=== PATIENT | female | born 1985 ===

== ENCOUNTER 2021-02-22 10:11 | Emergency (ER) | payer OTHER, SELFPAY ==
[2021-02-22 11:44] VITALS: BP 133/71; PULSE 82; RESP 16; TEMP 36.6; O2SAT 98; BMI 32.5
[2021-02-22 12:58] LABS: COVID-19 Test Negative (Negative); IDNOW Serial# 9DD0AD1C
--- NOTE | 2021-02-22 13:28 | ED.DENTAL ---
HPI - Dental/Oral General Chief complaint: Dental/Oral Stated complaint: dry gums, itchy face Time Seen by Provider: 02/22/21 12:15 Source: patient Mode of arrival: ambulatory History of Present Illness HPI Narrative: 36-year-old female with a past medical history of cardiomyopathy presenting to the ED complaining of dry/itchy gums, swollen lips s/p eating pizza 5 days ago. Admits symptoms are resolved at present, improved after taking Zyrtec. Believes toothpaste may also be culprit. Denies any rash, oral swelling, drooling, difficulty swallowing, wheezing, shortness of breath, cough. States 1 of her daughters was having similar reaction however her symptoms improved as well. Denies recent travel. Related Data Allergies Allergy/AdvReac Type Severity Reaction Status Date / Time penicillin G [PENICILLIN G] Allergy Unknown SWELLING Unverified 03/04/20 15:58 Review of Systems Review of Systems: Constitutional: No Fever, No Chills ENT/Mouth: No Ear Pain, No Nasal Congestion, No Hoarseness, No sore throat, No Swallowing Difficulty, + gum irritation/dry gums, swollen lips (resolved), itchy mouth (resolved) Cardiovascular: No Chest Pain, No SOB Respiratory: No Cough, No Sputum, No Wheezing Gastrointestinal: No Nausea, No Vomiting, No Abdominal pain Musculoskeletal: No joint pain, No Myalgias, No Joint Swelling Skin: No Skin Lesions, No rash Neuro: No Weakness, No Numbness Yes all other systems are reviewed and are negative PMFSH Past Medical History Attestation statement: The following information was validated with the patient. Medical History (Updated 02/22/21 @ 13:29 by AVERY Garcia) cardiomyopathy Social History Social History Advance Directives: No Advance Directives Information Provided: No Patient : No Physical Exam Vital Signs: Vital Signs: Last Vital Signs Temp 97.8 F 02/22/21 11:44 Pulse 82 02/22/21 11:44 Resp 16 02/22/21 11:44 BP 133/71 02/22/21 11:44 Pulse Ox 98 02/22/21 11:44 Body Mass Index 32.5 Const: General: cooperative, healthy appearing and no acute distress Orientation/consciousness: patient oriented x3 Limitations: no limitations HENMT: Head: Yes normal to inspection Ears: hearing grossly normal bilaterally General nose exam: Normal external nose present and Normal nares present Face and sinus: Yes normal facial exam Mouth: Normal oral and palatal mucosa present, lip normal, tongue normal, oropharynx normal, moist mucous membranes, no drooling and no muffled voice Throat: Yes posterior oropharynx normal, Yes tonsils normal, Yes uvula midline, No peritonsillar mass, No uvula laterally displaced and No uvular edema Eyes: General: appearance normal, both eyes and all related structures EOM: EOMs intact bilaterally Neck: Neck: Yes normal visual inspection, Yes no lymphadenopathy, Yes no meningeal signs, Yes trachea midline, Yes supple and No anterior neck swelling Resp: Effort & Inspection: normal respiratory effort, not labored, no stridor and not tachypneic Auscultation: clear to auscultation bilaterally Cardio: Rate: regular rate Heart sounds: S1 normal heart sound present and S2 normal heart sound present Skin: Rashes: no rashes Wounds: no wounds Neuro: General: patient oriented x3 and no meningeal signs Gait exam (Neuro): Normal gait present Extrem: General: Yes normal to inspection MDM - Dental/Oral MDM Narrative Medical decision making narrative: 36-year-old female with a past medical history of cardiomyopathy presenting to the ED complaining of dry/itchy gums, swollen lips s/p eating pizza 5 days ago. On exam VSS, NAD, no appreciable swelling/rash or lesions, no respiratory distress. Likely allergic reaction. Patient requesting COVID-19 testing. Plan: COVID-19 testing. Because with patient she should take Zyrtec and Benadryl at home if symptoms recur, and record diary of ingested substances if she develops similar reaction, into follow-up for allergy testing Lab Data Labs: Lab Results 02/22/21 Range/Units 12:24 COVID-19 (GABBY) Negative (Negative) COVID-19 Clin Com See Note Discharge Plan Discharge Clinical Impression: Allergic reaction Patient Disposition: Home, Self-Care Instructions: General Allergic Reaction (ED), Allergy Testing (ED) Additional Instructions: Take Zyrtec and Benadryl at home as needed for allergic reaction symptoms You tested negative for COVID-19 Please follow-up with her doctor If he develops shortness of breath, oral swelling, inability to swallow, lip/mouth swelling please return to the ED Referrals: Romain Gold MD [Primary Care Provider] - 2 days Interventions: ED Discharge Assessment Last Done: 02/22/21 13:40 Discharge Date/Time: 02/22/21 13:41
== END 2021-02-22 13:41 | disposition home or self-care (01) ==
PROVIDERS: Physician Assistant; Emergency Provider Emergency Medicine; PCP Internal Medicine
DX: T78.40XA Allergy, unspecified, initial encounter (principal); Z20.822 Contact with and (suspected) exposure to COVID-19
CPT/HCPCS: 36415; 87635; 99283

== ENCOUNTER 2021-06-16 14:02 | Outpatient (REF) | payer OTHER, SELFPAY ==
[2021-06-16 15:30] LABS: Binax Internal Control QC Valid; Binax Lot number: 9864; Binax Now Covid-19 Ag Positive (Negative)
== END 2021-06-16 14:03 | disposition home or self-care (01) ==
LOC: HO.LAB 14:02
PROVIDERS: Visit Provider Internal Medicine
DX: Z20.822 Contact with and (suspected) exposure to COVID-19 (principal)
CPT/HCPCS: 36415; C9803

== ENCOUNTER 2022-03-19 14:11 | Emergency (ER) | payer OTHER, SELFPAY ==
--- NOTE | ~2022-03-19 | XR_ITS ---
EXAMINATION: XR THORACIC SPINE CLINICAL INFORMATION: Fall, injury COMPARISON: None TECHNIQUE: 3 views of the thoracic spine were obtained. FINDINGS: There is no fracture or bone destruction seen and the vertebral alignment is normal. There is no disc space narrowing. There is no abnormality of the paraspinal soft tissues. XR/XR thoracic spine 3V IMPRESSION: Unremarkable examination.
[2022-03-19 14:13] VITALS: BP 147/75; PULSE 65; RESP 18; TEMP 36.4; O2SAT 97; BMI 34.3
--- OUTSIDE RECORDS SUMMARY | 2022-03-19 14:37 | XMS_ITS | Continuity of Care Document ---
:1985 [facility] [employer] [facility] p Address [address] [place] [address], [address] [place] [address]- Care Team Providers Name Role Phone Asif HERNÁNDEZ MD, Romain Armas Primary Care Physician [id number] Date(s[facility]/13/[facility] - [facility]20/19 [facility] [employer] [address] [place] [address], [address] [place] [address]- [facility] Attending Physician: Jack ZUÑIGA, Noah Regan Referring Physician: Not on Staff, Referring MD Allergies, Adverse Reactions, Alerts Substance Reaction Severity Status penicillins Active Immunizations Given and Recorded Vaccine Date Status Refusal Reason tetanus/diphtheria/pertussis, acel(Tdap) 06/23/19 Given Medications levothyroxine 0.125 mg oral tablet 0 Refills, Maintenance, 12/22/16 11:37:27 Start Date: 12/22/16 Status: OrderedMultivitamin Tablet 0 Refills, Maintenance, 10/27/19 14:26:00 EDT Start Date: 10/27/19 Status: Ordered Problem List Condition Effective Dates Status Health Status Informant Anxiety(Confirmed) Active History of DEDE 2 in 2012, s/p Active cryoablation, subsequent normal paps. 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
--- OUTSIDE RECORDS SUMMARY | 2022-03-19 14:37 | XMS_ITS | Continuity of Care Document ---
:1985 Author Organization [facility] Address [address] [place] [address]- Care Team Providers Name Role Phone Asif HERNÁNDEZ MD, Romain Armas Primary Care Physician Encounter [facility] [place] Date(s): 06/24/19 - 06/24/[address] [address]- [facility] Attending Physician: Lydia Mariano MD Allergies, Adverse Reactions, Alerts Substance Reaction Severity Status penicillins Active Immunizations Given and Recorded Vaccine Date Status Refusal Reason tetanus/diphtheria/pertussis, acel(Tdap) 06/23/19 Given Medications levothyroxine 0.125 mg oral tablet 0 Refills, Maintenance, 12/22/16 11:37:27 Start Date: 12/22/16 Status: OrderedPrenate Mini with DHA oral capsule 1 capsule, By Mouth, Daily, # 30 capsule, 11 Refills, Maintenance, 04/08/19 19:48:54 EDT, 1 capsule By Mouth Daily Start Date: 04/08/19 Status: Ordered Problem List Condition Effective Dates Status Health Status Informant Anxiety(Confirmed) Active DEDE 2 2012, s/p cryoablation, Active subsequent normal paps(Confirmed) Endometriosis(Confirmed) Active 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
--- OUTSIDE RECORDS SUMMARY | 2022-03-19 14:37 | XMS_ITS | Continuity of Care Document ---
:1985 Author [facility] p Address [address] [place] [address], [address] [place] [address]- Care Team Providers Name Role Phone Asif HERNÁNDEZ MD, Romain Armas Primary Care Physician [place] [facility] [place]/20/19 - 12/28/19 [facility] Melva [employer] [facility] [address] [place] [address], [address] [place] [address]- [facility] Attending Physician: Anthony ZUÑIGA, Noah Gregory Referring Physician: Noah Santiago MD Allergies, Adverse Reactions, Alerts Substance Reaction [...] Procedure Date Related Diagnosis Body Site Status Tubal ligation 09/08/19 Completed Social History Social History Type Response Smoking Status Never (less than 100 in life time); Tobacco user in household: No entered on: 10/27/19 Sex
--- OUTSIDE RECORDS SUMMARY | 2022-03-19 14:37 | XMS_ITS | Continuity of Care Document ---
:1985 Author Organization [facility] Address [address] [place] [address], [address] [place] [address]- Care Team Providers Name Role Phone Asif HERNÁNDEZ MD, Romain Armas Primary Care Physician Encounter [facility] [place] Date(s): 09/01/19 - 09/08/19 [facility] Melva [facility] [address] [place] [address], [address] [place] [address]- Attending Physician: Jak ZUÑIGA, Tiff Betancourt Referring Physician: Pamela Graff MD Allergies, Adverse Reactions, Alerts Substance Reaction Severity Status penicillins Active Immunizations Given and Recorded Vaccine Date Status Refusal Reason tetanus/diphtheria/pertussis, acel(Tdap) 06/23/19 Given Medications ferrous fumarate 325 mg oral tablet 1 tablet = 325 mg, By Mouth, Daily, # 90 tablet, 0 Refills, Maintenance, 06/26/19 13:08:00 EST, Tablet, [facility] [address], 160, cm, 06/23/19 16:04:00 EST, Height Start Date: 06/26/19 Status: Orderedlevothyroxine 0.125 mg oral tablet 0 Refills, Maintenance, 12/22/16 11:37:27 Start Date: 12/22/16 Status: Orderednystatin topical 600814 u/gm powder 1 application, Topically, 2 times a day, # 30 Gm, 1 Refills, Acute 09/26/19 10:19:00 EDT, 08/18/19 10:19:00 EST, Powder, [id number], 1 application Topically 2 times a day, 160, cm, 08/18/19 9:57:00 EST, Height Start Date: 08/18/19 Stop Date: 09/26/19 Status: OrderedPrenate Mini with DHA oral capsule 1 capsule, By Mouth, Daily, # 30 capsule, 11 Refills, Maintenance, 04/08/19 19:48:54 EDT, 1 capsule By Mouth Daily Start Date: 04/08/19 Status: OrderedvalACYclovir 500 mg oral tablet 500 mg, 1, tablet, By Mouth, Every 12 hours, # 60 tablet, Refills 1, Tot. 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 History of delivery(Confirmed) Active Hypothyroidism(Confirmed) Active Multigravida of advanced maternal Active age(Confirmed) Obesity(Confirmed) Active Seasonal allergies(Confirmed) Active Request for sterilization(Confirmed) Active Uterine scar from previous Active delivery, antepartum(Confirmed) Vital Signs Most recent to oldest [Reference Range]: 1 Height 160 cm (09/01/19 2:12 PM) Weight 93.2 kg (09/01/19 2:12 PM) Body Mass Index [18.5-24.99] 36.41 *>HHI* (09/01/19 2:12 PM) Blood Pressure [90-138/55-84 mm Hg] 114/70 mm Hg (09/01/19 2:12 PM) Blood pressure sites Arm, right (09/01/19 2:12 PM) Weight Obtained Via Standing scale (09/01/19 2:12 PM) Social History Social History Type Response Smoking Status Never (less than 100 in life time); Tobacco user in household: No entered on: 04/08/19 Sex
--- OUTSIDE RECORDS SUMMARY | 2022-03-19 14:37 | XMS_ITS | Continuity of Care Document ---
:1985 Author Organization [facility] p Address [address] [place] [address], [address] [place] [address]- Care Team Providers Name Role Phone Asif HERNÁNDEZ MD, Romain Armas Primary Care Physician En[place] [facility] [place] Date(s): 06/23/19 - 06/30/19 [facility] [facility] [address] [place] [address], [address] [place] [address]- Attending Physician: Lydia Mariano MD Allergies, Adverse Reactions, Alerts Substance Reaction Severity Status penicillins Active Immunizations Given and Recorded Vaccine Date Status Refusal Reason tetanus/diphtheria/pertussis, acel(Tdap) 06/23/19 Given Medications ferrous fumarate 325 mg oral tablet 1 tablet = 325 mg, By Mouth, Daily, # 90 tablet, 0 Refills, Maintenance, 06/26/19 13:08:00 EST, Tablet, [facility] [address], 160, cm, 06/23/19 16:04:00 EST, Height [...] oldest [Reference Range]: 1 Height 160 cm (06/23/19 4:04 PM) Weight 89.1 kg (06/23/19 4:04 PM) Body Mass Index [18.5-24.99] 34.8 *>HHI* (06/23/19 4:04 PM) Blood Pressure [90-138/55-84 mm Hg] 108/59 mm Hg (06/23/19 4:04 PM) Blood pressure sites Arm, right (06/23/19 4:04 PM) Weight Obtained Via Standing scale (06/23/19 4:04 PM) Social History Social History Type Response Smoking Status Never (less than 100 in life time); Tobacco user in household: No entered on: 04/08/19 Sex
--- OUTSIDE RECORDS SUMMARY | 2022-03-19 14:37 | XMS_ITS | Continuity of Care Document ---
:1985 Author Organization [facility] Address [address] [place] [address]- Care Team Providers Name Role Phone Asif HERNÁNDEZ MD, Romain Armas Primary Care Physician En[facility] [place] Date(s): 07/29/19 - 08/08/[address] [address]- [facility] Attending Physician: Lillie Goldberg Admitting Physician: AdmLillie mccollum Referring Physician: AdmtrLillie Allergies, Adverse Reactions, Alerts Substance Reaction Severity [...]
--- OUTSIDE RECORDS SUMMARY | 2022-03-19 14:37 | XMS_ITS | Continuity of Care Document ---
:1985 Author Organization [facility] Address [address] [place] [address], [address] [place] [address]- Care Team Providers Name Role Phone Asif HERNÁNDEZ MD, Romain Armas Primary Care Physician Encounter [facility] Date(s): 07/21/19 - 07/31/19 [facility] [email or web address] [address], [address] [place] [address]- Attending Physician: Lillie Goldberg Admitting Physician: Lillie Goldberg Referring Physician: Lillie Goldberg Allergies, Adverse Reactions, Alerts Substance Reaction Severity [...]
--- OUTSIDE RECORDS SUMMARY | 2022-03-19 14:37 | XMS_ITS | Continuity of Care Document ---
:1985 Author Organization [facility] [employer] [facility] Address [address] [place] [address], [address] [place] [address]- Care Team Providers Name Role Phone Asif HERNÁNDEZ MD, Romain Armas Primary Care Physician [id number] Date[facility]s): 08/18/19 - 08/25/19 [facility] Melva [facility] [address], [address] [place] [address]- Attending Physician: Jak ZUÑIGA, Tiff Betancourt Referring Physician: Pamela Graff MD Allergies, Adverse Reactions, Alerts Substance Reaction Severity Status penicillins Active Immunizations Given and Recorded Vaccine Date Status Refusal Reason tetanus/diphtheria/pertussis, acel(Tdap) 06/23/19 Given Medications ferrous fumarate 325 mg oral tablet 1 tablet = 325 mg, By Mouth, Daily, # 90 tablet, 0 Refills, Maintenance, 06/26/19 13:08:00 EST, Tablet, [facility] [address], 160, cm, 06/23/19 16:04:00 EST, Height Start Date: 06/26/19 Status: Orderedlevothyroxine 0.125 mg oral tablet 0 Refills, Maintenance, 12/22/16 11:37:27 Start Date: 12/22/16 Status: Orderednystatin topical 945325 u/gm powder 1 application, Topically, 2 times a day, # 30 Gm, 1 Refills, Acute 09/26/19 10:19:00 EDT, 08/18/19 10:19:00 EST, Powder, [facility][id number], 1 application Topically 2 times a day, [...] 08/18/19 10:12:00 EST, Route to Pharmacy Electronically, [id number], 160, cm, 209:57:00 EST, Height Start Date: [...] oldest [Reference Range]: 1 Height 160 cm (08/18/19 9:57 AM) Weight 93.2 kg (08/18/19 9:57 AM) Body Mass Index [18.5-24.99] 36.41 *>HHI* (08/18/19 9:57 AM) Blood Pressure [90-138/55-84 mm Hg] 116/75 mm Hg (08/18/19 9:57 AM) Blood pressure sites Arm, right (08/18/19 9:57 AM) Weight Obtained Via Standing scale (08/18/19 9:57 AM) Social History Social History Type Response Smoking Status Never (less than 100 in life time); Tobacco user in household: No entered on: 04/08/19 Sex
--- OUTSIDE RECORDS SUMMARY | 2022-03-19 14:37 | XMS_ITS | Continuity of Care Document ---
:1985 Author Organization [facility] Address [address] [place] [address], [address] [place] [address]- Care Team Providers Name Role Phone Asif HERNÁNDEZ MD, Romain Armas Primary Care Physician En[facility] [id number] Date(s): 09/08/19 - 09/18/19 [facility] [employer] [address], [address] [place] [address]- Attending Physician: Lillie Goldberg Admitting Physician: Lillie Goldberg Referring Physician: AdmLillie mccollum Allergies, Adverse Reactions, Alerts Substance Reaction Severity Status penicillins Active Immunizations Given and Recorded Vaccine Date Status Refusal Reason tetanus/diphtheria/pertussis, acel(Tdap) 06/23/19 Given Medications acetaminophen 325 mg oral tablet 650 mg, By Mouth, Every 4 hours, # 50 tablet, Refills 0, Tot. Refills 0, Maintenance, 09/10/19 7:40:00 EDT, Route to Pharmacy Electronically, [facility] #[id number], 161, cm, 09/10/19 0:06:00 EDT,Height, 92, kg, 09/08/19 11:05:00 EDT, Dry Weight Start Date: 09/10/19 Status: Orderedferrous fumarate 325 mg oral tablet 1 tablet = 325 mg, By Mouth, Daily, # 90 tablet, 0 Refills, Maintenance, 06/26/19 13:08:00 EST, Tablet, [facility] [address], 160, cm, 06/23/19 16:04:00 EST, Height Start Date: 06/26/19 Status: Orderedibuprofen 800 mg oral tablet 800 mg, 1, tablet, By Mouth, Every 8 hours, # 50 tablet, Refills 0, Tot. Refills 0, Maintenance, 09/10/19 7:40:00 EDT, Route to Pharmacy Electronically, [id number], 161, cm, 09/10/19 0:06:00 EDT, Height, 92, kg, 09/08/19 11:05:00 EDT,... Start Date: 09/10/19 Status: Orderedlevothyroxine 0.125 mg oral tablet 0 Refills, Maintenance, 12/22/16 11:37:27 Start Date: 12/22/16 Status: OrderedoxyCODONE 5 mg oral tablet 5 mg, 1, tablet, By Mouth, Every 6 hours, PRN, # 15 tablet, Refills 0, Tot. Refills 0, Acute 10/06/19 18:26:00 EDT, as needed for pain, 09/12/19 18:25:00 EDT, Route to Pharmacy Electronically, [facility]/pharmacy #[id number], Partial fill upon patient request, 161... Start Date: 09/12/19 Stop Date: 10/06/19 Status: Orderedsimethicone 80 mg oral tablet, chewable 80 mg, Chew, 3 times a day, PRN, # 12 tablet, Refills 0, Tot. Refills 0, Maintenance, Gas, 09/10/19 7:40:00 EDT, Route to Pharmacy Electronically, [facility] #[id number], 161, cm, 09/10/19 0:06:00EDT, Height, 92, kg, 09/08/19 11:05:00 EDT, Dry W... Start Date: 09/10/19 Status: Ordered Problem List Condition Effective Dates [...]
--- OUTSIDE RECORDS SUMMARY | 2022-03-19 14:37 | XMS_ITS | Continuity of Care Document ---
:1985 Author Organization [facility] Address [address] [place] [address]- Care Team Providers Name Role Phone Asif HERNÁNDEZ MD, Romain Armas Primary Care Physician En[facility] [place] Date(s): 06/24/19 - 06/24/[address] [address]- [facility] Attending Physician: Deepa Harp MD Allergies, Adverse Reactions, Alerts Substance Reaction [...]
--- OUTSIDE RECORDS SUMMARY | 2022-03-19 14:37 | XMS_ITS | Continuity of Care Document ---
:1985 Author [facility] p Address [address] [place] [address], [address] [place] [address]- Care Team Providers Name Role Phone Asif HERNÁNDEZ MD, Romain Armas Primary Care Physician [place] [facility] [place] Date(s): 06/09/19 - 06/16/19 [facility] [facility] [address] [place] [address], [address] [place] [address]- Attending Physician: Lydia Mariano MD Allergies, Adverse Reactions, Alerts Substance Reaction Severity Status penicillins Active Medications levothyroxine 0.125 mg oral tablet 0 [...] oldest [Reference Range]: 1 Height 160 cm (06/09/19 11:10 AM) Blood Pressure [90-138/55-84 mm Hg] 102/63 mm Hg (06/09/19 11:10 AM) Blood pressure sites Arm, right (06/09/19 11:10 AM) Social History Social History Type Response Smoking Status Never (less than 100 in life time); Tobacco user in household: No entered on: 04/08/19 Sex
--- OUTSIDE RECORDS SUMMARY | 2022-03-19 14:37 | XMS_ITS | Continuity of Care Document ---
:1985 Author Organization [facility] Address [address] [place] [address]- Care Team Providers Name Role Phone Asif HERNÁNDEZ MD, Romain Armas Primary Care Physician Encounter [facility] [place] Date(s): 06/24/19 - 06/24/[address] [address]- [facility] Attending Physician: Purvi Arboleda CNM Allergies, Adverse Reactions, Alerts Substance Reaction Severity [...]
--- OUTSIDE RECORDS SUMMARY | 2022-03-19 14:37 | XMS_ITS | Continuity of Care Document ---
:1985 Author Organization [facility] Address [address] [place] [id number]- Care Team Providers Name Role Phone Asif HERNÁNDEZ MD, Romain Armas Primary Care Physician Encounter [facility] [place] Date(s): 09/08/19 - 09/10/[address] [address]- [facility] Discharge Disposition: A-D/C Home Attending Physician: Deepa Harp MD Admitting Physician: Deepa Harp MD Referring Physician: Deepa Harp MD Allergies, Adverse Reactions, Alerts Substance Reaction Severity Status penicillins Active Immunizations Given and Recorded Vaccine Date Status Refusal Reason tetanus/diphtheria/pertussis, acel(Tdap) 06/23/19 Given Medications acetaminophen 325 mg oral tablet 650 mg, By Mouth, Every 4 hours, # 50 tablet, Refills 0, Tot. Refills 0, Maintenance, 09/10/19 7:40:00 EDT, Route to Pharmacy Electronically, [facility] #[id number], 161, cm, 09/10/19 0:06:00 EDT,Height, 92, kg, [...] 09/10/19 7:40:00 EDT, Route to Pharmacy Electronically, [id number] #[id number], 161, cm, 09/10/19 0:06:00 EDT, Height, 92, kg, 09/08/19 11:05:00 EDT,... Start Date: 09/10/19 Status: Orderedlevothyroxine 0.125 mg oral tablet 0 Refills, Maintenance, 12/22/16 11:37:27 Start Date: 12/22/16 Status: OrderedoxyCODONE 5 mg oral tablet 5 mg, 1, tablet, By Mouth, Every 3 hours, PRN, (7-10), # 15 tablet, Refills 0, Tot. Refills 0, Acute09/28/19 7:41:00 EDT, Pain , Moderate, 09/10/19 7:40:00 EDT, Route to Pharmacy Electronically, [id number] #[id number], Partial fill upon patient... Start Date: 09/10/19 Stop Date: 09/28/19 Status: Orderedsimethicone 80 mg oral tablet, chewable 80 mg, Chew, 3 times a day, PRN, # 12 tablet, Refills 0, Tot. Refills 0, Maintenance, Gas, 09/10/19 7:40:00 EDT, Route to Pharmacy Electronically, [id number] #[id number], 161, cm, 09/10/19 0:06:00EDT, Height, 92, kg, [...] Uterine scar from previous Active delivery, antepartum(Confirmed) Procedures Procedure Date Related Diagnosis Body Site Status delivery only; 09/08/19 Comp leted Vital Signs Most recent to oldest 1 2 3 [Reference Range]: Height 161 cm 161 cm 161 cm (09/10/19 8:00 AM) (09/10/19 12:06 AM) (09/09/19 4: 00 PM) Weight 92 kg 93 kg (09/08/19 11:05 AM) (09/07/19 7:43 PM) Oxygen Saturation [94-100 %] 98 % 99 % 100 % (09/10/19 8:00 AM) (09/10/19 12:06 AM) (09/09/19 4: 00 PM) Pulse Rate [55-90 bpm] 83 bpm 86 bpm 80 bpm (09/10/19 8:00 AM) (09/10/19 12:06 AM) (09/09/19 4: 00 PM) Body Mass Index [18.5-24.99] 35.49 35.88 *>HHI* *>HHI* (09/08/19 11:05 AM) (09/07/19 7:43 PM) Blood Pressure [90-138/55-84 121/64 mm Hg 97/54 mm Hg 107 /52 mm Hg mm Hg] (09/10/19 8:00 AM) (09/10/19 12:06 AM) (09/09/19 4: 00 PM) Respiratory Rate [16-30 18 br/min 18 br/min 18 br/mi n br/min] (09/10/19 2:27 PM) (09/10/19 10:28 AM) (09/10/19 8: 00 AM) Temperature [96.8-100.4 DegF] 98.4 DegF 97.9 DegF 98 .5 DegF (09/10/19 8:00 AM) (09/10/19 12:06 AM) (09/09/19 4: 00 PM) Mode of Delivery (Oxygen) Room air Room air Room a ir (09/10/19 8:00 AM) (09/10/19 12:06 AM) (09/09/19 4: 00 PM) Blood pressure sites Arm, right Arm, right Arm, left (09/10/19 8:00 AM) (09/10/19 12:06 AM) (09/09/19 1: 32 AM) Temperature Route Oral Oral Oral (09/10/19 8:00 AM) (09/10/19 12:06 AM) (09/09/19 4: 00 PM) Dry Weight 92 kg 93 kg (09/08/19 11:05 AM) (09/07/19 7:43 PM) Sensory deficits None None None (09/08/19 11:05 AM) (09/08/19 11:05 AM) (09/07/19 7 :43 PM) Mobility assistance Independent Independent (09/08/19 11:05 AM) (09/07/19 7:43 PM) Social History Social History Type Response Smoking Status Never (less than 100 in life time); Tobacco user in household: No entered on: 04/08/19 Sex
--- OUTSIDE RECORDS SUMMARY | 2022-03-19 14:37 | XMS_ITS | Continuity of Care Document ---
:1985 Author Organization [facility] [employer] [facility] Address [address] [place] [address], [address] [place] [id number]- Care Team Providers Name Role Phone Asif HERNÁNDEZ MD, Romain Armas Primary Care Physician [place] [facility] [place] 08/04[place] - 08/11/19 [facility] [place] [facility] [address] [place] [address], [address] [place] [id number]- Attending Physician: García ZUÑIGA, Lydia Eisenberg Allergies, Adverse Reactions, Alerts Substance Reaction Severity Status penicillins Active Immunizations Given and Recorded Vaccine Date Status Refusal Reason tetanus/diphtheria/pertussis, acel(Tdap) 06/23/19 Given Medications ferrous fumarate 325 mg oral tablet 1 tablet = 325 mg, By Mouth, Daily, # 90 tablet, 0 Refills, Maintenance, 06/26/19 13:08:00 EST, Tablet, [facility] [address], 160, cm, 06/23/19 16:04:00 EST, Height [...] oldest [Reference Range]: 1 Height 160 cm (08/04/19 11:24 AM) Weight 91.4 kg (08/04/19 11:24 AM) Body Mass Index [18.5-24.99] 35.7 *>HHI* (08/04/19 11:24 AM) Blood Pressure [90-138/55-84 mm Hg] 102/62 mm Hg (08/04/19 11:24 AM) Blood pressure sites Arm, left (08/04/19 11:24 AM) Weight Obtained Via Standing scale (08/04/19 11:24 AM) Social History Social History Type Response Smoking Status Never (less than 100 in life time); Tobacco user in household: No entered on: 04/08/19 Sex
--- OUTSIDE RECORDS SUMMARY | 2022-03-19 14:37 | XMS_ITS | Continuity of Care Document ---
:1985 Author Organization [facility] Address [address] [place] [address], [address] [place] [id number]- Care Team Providers Name Role Phone Asif HERNÁNDEZ MD, Romain Armas Primary Care Physician Encounter [facility] Date(s): 11/28/19 - 12/28/19 [facility] [address] [address]- [facility] Attending Physician: Lillie Goldberg Admitting Physician: Lillie [...] Anxiety(Confirmed) Active History of DEDE 2 in 2013, s/p Active cryoablation, subsequent normal paps. 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
--- NOTE | 2022-03-19 16:39 | ED_ITS ---
HPI - Back Pain/Injury General Chief Complaint: Back Pain/Injury Stated Complaint: back pain Time Seen by Provider: 03/19/22 15:24 History of Present Illness HPI Narrative: Patient complains of pain upper and lower back after falling off a small step stool yesterday when she was reaching for something and landed on her back, there is no other injury there is no head injury no neck pain no numbness no weakness no tingling no changes to bowel or bladder no chest pain no difficulty breathing Related Data Previous Rx's Medication Instructions Recorded acetaminophen 500 mg tablet 1,000 mg PO QID PRN pain #30 tabs 03/19/22 cyclobenzaprine 5 mg tablet 5 mg PO TID PRN muscle spasm #10 03/19/22 tabs ibuprofen 600 mg tablet 600 mg PO Q6H PRN pain #20 tabs 03/19/22 Allergies Allergy/AdvReac Type Severity Reaction Status Date / Time penicillin G [PENICILLIN G] Allergy Unknown SWELLING Unverified 03/04/20 15:58 Review of Systems Review of Systems: Positive for back pain after a fall Negatives are no fever no chills no dizziness or weakness no fainting no feeling faint no head injury no neck injury no neck pain no numbness weakness or tingling no chest pain no shortness of breath no abdominal pain no nausea vomiting or diarrhea no dysuria no frequency no incontinence no constipation no change to bowel or bladder no rash no muscle weakness or loss of sensation Yes all other systems are reviewed and are negative [facility] Past Medical History Source: nursing notes reviewed Medical History (Updated 03/20/22 @ 00:01 by Background Daemon) cardiomyopathy Social History Social History Advance Directives: No Advance Directives Information Provided: No Physical Exam Vital Signs: Vital Signs: Last Vital Signs Temp 97.5 F 03/19/22 14:13 Pulse 65 03/19/22 14:13 Resp 18 03/19/22 14:13 BP 147/75 H 03/19/22 14:13 Pulse Ox 97 03/19/22 14:13 O2 Del Method 03/19/22 14:13 BMI result Body Mass Index 34.3 General appearance no distress Head is normocephalic atraumatic Neck is supple nontender Respiratory no distress no chest wall tenderness The abdomen soft nontender The back had diffuse upper lumbar tenderness no focal bony tenderness, pain is reproduced with movement and skin was normal Extremities full range of motion x4 Neuro no focal motor sensory deficits, gait and balance were normal Course Course Course Narrative: Thoracic spine x-ray was negative and patient with no neurologic deficit no difficulty breathing no difficulty walking was discharged with analgesics Discharge Plan Discharge Clinical Impression: Back pain Patient Disposition: Home, Self-Care Additional Instructions: X-ray of the thoracic spine did not show any fracture or acute injury Follow with your doctor for possible physical therapy and further evaluation Return any time any worse condition or any concerns Prescriptions: New acetaminophen 500 mg tablet 1,000 mg PO QID PRN (Reason: pain) Qty: 30 0RF cyclobenzaprine 5 mg tablet 5 mg PO TID PRN (Reason: muscle spasm) Qty: 10 0RF ibuprofen 600 mg tablet 600 mg PO Q6H PRN (Reason: pain) Qty: 20 0RF Interventions: ED Discharge Assessment Last Done: 03/19/22 16:55 Discharge Date/Time: 03/19/22 16:56
== END 2022-03-19 16:56 | disposition home or self-care (01) ==
PROVIDERS: Emergency Provider Emergency Medicine Emergency Medical Services; PCP Internal Medicine
DX: M54.50 Low back pain, unspecified (principal); Z79.899 Other long term (current) drug therapy
CPT/HCPCS: 72072; 99282; 99283

== ENCOUNTER 2022-09-23 03:25 | Emergency (ER) | payer OTHER, SELFPAY ==
[2022-09-23 03:30] VITALS: BP 139/87; PULSE 90; RESP 18; TEMP 36.4; O2SAT 95; BMI 35.3
--- NOTE | 2022-09-23 04:25 | ED_ITS ---
HPI - Ear Problem General Chief complaint: Ear Problems Stated complaint: Ear Pain both sides / congested Time Seen by Provider: 09/23/22 03:56 Source: patient Mode of arrival: ambulatory History of Present Illness HPI Narrative: 37-year-old female has been having cough and congestion for several days now but began having left-sided ear pain that at this point is so painful that she states she cannot sleep. Related Data Previous Rx's Medication Instructions Recorded acetaminophen 500 mg tablet 1,000 mg PO QID PRN pain #30 tabs 03/19/22 cyclobenzaprine 5 mg tablet 5 mg PO TID PRN muscle spasm #10 03/19/22 tabs ibuprofen 600 mg tablet 600 mg PO Q6H PRN pain #20 tabs 03/19/22 cefdinir 300 mg capsule 300 mg PO BID 10 days #20 caps 09/23/22 Allergies Allergy/AdvReac Type Severity Reaction Status Date / Time penicillin G [PENICILLIN G] Allergy Unknown SWELLING Verified 09/23/22 03:33 Review of Systems Review of Systems: Pertinent positives and negatives as stated in HPI PMFSH Past Medical History Source: nursing notes reviewed Medical History cardiomyopathy Social History Social History Advance Directives: No Advance Directives Information Provided: Yes Physical Exam Vital Signs: Vital Signs: Last Vital Signs Temp 97.5 F 09/23/22 03:30 Pulse 83 09/23/22 04:37 Resp 16 09/23/22 04:37 BP 145/92 H 09/23/22 04:37 Pulse Ox 98 09/23/22 04:37 O2 Del Method Room Air 09/23/22 04:37 BMI result Body Mass Index 35.3 VITAL SIGNS: Reviewed. GENERAL: Well developed, well nourished, in no acute distress. HEAD: Normocephalic/atraumatic EYES: PERRLA, EOMI EARS: RIGHT- Ext canals without abnormality, TMs non-bulging and non- erythematous, LEFT- Ext canals without abnormality, TMs bulging and erythematous NOSE: Nares patent bilateral OROPHARYNX: no oral lesions noted, posterior pharynx clear and non-erythematous without noted tonsillar enlargement/erythema/exudates NECK: Supple, no adenopathy LUNGS: Normal breath sounds. No adventitious sounds or accessory muscle use. SpO2<95> CARDIOVASCULAR: Regular rate and rhythm without noted murmurs ABDOMEN: Soft, non-tender, non-distended with bowel sounds. MUSCULOSKELETAL: No tenderness, deformities, or effusions noted on gross inspection. EXTREMITIES: No cyanosis, clubbing or edema. SKIN: Inspection of the skin reveals no rashes NEUROLOGIC: Alert and oriented x 4. Strength and sensation to light touch were grossly intact x 4. Medications Administered Discontinued Medications Generic Name Dose Route Start Last Admin Trade Name Freq PRN Reason Stop Dose Admin Acetaminophen 975 mg 09/23/22 04:29 09/23/22 04:52 Acetaminophen 325 Mg Tablet PO 09/23/22 04:30 975 mg ONCE ONE Administration Ceftriaxone Sodium 250 mg 09/23/22 04:29 09/23/22 04:57 Ceftriaxone Sodium 250 Mg Vial IM 09/23/22 04:30 250 mg ONCE ONE Administration Ibuprofen 400 mg 09/23/22 04:29 09/23/22 04:52 Ibuprofen 400 Mg Tablet PO 09/23/22 04:30 400 mg ONCE ONE Administration Medical Decision Making Medical Decision Making MDM Narrative: 37-year-old female with cardiomyopathy and allergic to penicillins. Patient received Tylenol/ibuprofen/IM Rocephin. Strep and COVID are pending. I reviewed all strep and COVID testing which is negative. Patient received initial antibiotics here in was discharged home in stable condition. Differential Diagnosis Please see the discussion above Lab Data Please see the discussion above Labs: Lab Results 09/23/22 09/23/22 Range/Units 04:37 04:37 COVID-19 (GABBY) Negative (Negative) COVID-19 Clin Com See Note S. pyogenes GrpA VERONIKA Negative (Negative) Discharge Plan Discharge Clinical Impression: Otitis media Patient Disposition: Home, Self-Care Instructions: Ear Infection (ED) Additional Instructions: 1. Recommend [id number] Tylenol/ibuprofen as needed for pain control. 2. Complete the entire course of antibiotics as ordered. Return to the ER for any worsening symptoms. Prescriptions: New cefdinir 300 mg capsule 300 mg PO BID 10 Days Qty: 20 0RF No Action acetaminophen 500 mg tablet 1,000 mg PO QID PRN (Reason: pain) Qty: 30 0RF cyclobenzaprine 5 mg tablet 5 mg PO TID PRN (Reason: muscle spasm) Qty: 10 0RF ibuprofen 600 mg tablet 600 mg PO Q6H PRN (Reason: pain) Qty: 20 0RF Referrals: Romain Gold III, MD [Primary Care Provider] -
[2022-09-23 04:37] VITALS: BP 145/92; PULSE 83; RESP 16; O2SAT 98
[2022-09-23 04:51] LABS: IDNOW Serial# 6674DD1D; Strep A Nucleic Acid Negative (Negative)
[2022-09-23] MEDS: Ibuprofen 400 MG TABLET PO (04:52)
[2022-09-23] MEDS: Acetaminophen 325 MG TABLET 975 MG PO (04:52)
[2022-09-23] MEDS: cefTRIAXone sodium 250 MG VIAL IM (04:57)
[2022-09-23 05:09] LABS: COVID-19 Test Negative (Negative); IDNOW Serial# 55D5AD1C
== END 2022-09-23 05:35 | disposition home or self-care (01) ==
PROVIDERS: Emergency Provider Student in an Organized Health Care Education/Training Program; PCP Internal Medicine
DX: H66.92 Otitis media, unspecified, left ear (principal); Z20.822 Contact with and (suspected) exposure to COVID-19; Z79.899 Other long term (current) drug therapy
CPT/HCPCS: 87635; 87651; 96372; 99283; 99284; J0696

== ENCOUNTER 2024-06-21 14:44 | Emergency (ER) | payer OTHER, SELFPAY ==
[2024-06-21 14:51] VITALS: BP 119/83; PULSE 91; RESP 16; TEMP 36.8; O2SAT 99; BMI 35.3
--- NOTE | 2024-06-21 14:51 | ED.DIZZY ---
HPI - Dizziness General Chief Complaint: General Medical Stated Complaint: dizzy Time Seen by Provider: 06/21/24 16:16 Related Data Previous Rx's ?Medication ?Instructions ?Recorded acetaminophen 500 mg tablet 1,000 mg (2 x 500 mg) PO QID PRN 03/19/22 pain #30 tabs cyclobenzaprine 5 mg tablet 5 mg PO TID PRN muscle spasm #10 03/19/22 tabs ibuprofen 600 mg tablet 600 mg PO Q6H PRN pain #20 tabs 03/19/22 cefdinir 300 mg capsule 300 mg PO BID 10 days #20 caps 09/23/22 Allergies Allergy/AdvReac Type Severity Reaction Status Date / Time penicillin G [PENICILLIN G] Allergy Unknown SWELLING Verified 06/21/24 14:53 [facility] Past Medical History Medical History cardiomyopathy Social History Social History Alcohol intake: never Smoked in Last 30 Days: No Use of substances other than those prescribed or required for medical reasons: No Advance Directives: No Advance Directives Information Provided: No Do you have a plan to hurt others: No Plan Patient : No Physical Exam Vital Signs: Vital Signs: Last Vital Signs Temp 98.8 F 06/21/24 17:07 Pulse 89 06/21/24 17:11 Resp 20 06/21/24 17:07 BP 119/76 06/21/24 17:11 Pulse Ox 99 06/21/24 17:07 O2 Del Method Room Air 06/21/24 17:07 BMI result Body Mass Index 35.3 Course Course Course Narrative: This is a Rapid Medical Exam performed in triage by Ally Gorman PA-C. Full HPI, ROS and PE to be performed by primary ED provider. 39yo F presenting to the ED c/o sore throat, head pressure, dizziness & decreased appetite x yesterday. PE: ambulating w/steady gait no ataxia Plan: EKG, labs, UA, Ur-preg, viral testing, rapid strep Medical Decision Making Lab Data 06/21/24 15:09 06/21/24 15:09 Labs: Lab Results 06/21/24 06/21/24 Range/Units 15:09 17:21 WBC 4.6 L (4.8-10.8) X10*3/uL RBC 4.17 L (4.20-5.50) X10*6/uL Hgb 12.4 (12.0-16.0) g/dl Hct 36.5 L (37.0-47.0) % MCV 87.5 (80.0-98.0) fL MCH 29.7 (27.0-33.0) pg MCHC 34.0 (31.0-35.0) g/dl RDW 12.4 (11.0-16.0) % Plt Count 153 L (160-400) X10*3/uL MPV 10.9 (9.4-12.3) fL Immature Gran % (Auto) 0.2 (0.0-0.4) % Neut % (Auto) 74.5 H (45-73) % Lymph % (Auto) 14.9 L (20-40) % Woodson % (Auto) 7.6 (2-11) % Eos % (Auto) 2.6 (0-4) % Baso % (Auto) 0.2 (0-2) % Lymph # (Auto) 0.7 L (1.2-4.9) X10*3/uL [place]son # (Auto) 0.4 (0.1-1.2) X10*3/uL Eos # (Auto) 0.1 (0.0-0.4) X10*3/uL Baso # (Auto) 0.0 (0.0-0.2) X10*3/uL Abs Immat Gran (auto) 0.01 (0.00-0.03) X10*3/uL Absolute Neuts (auto) 3.5 (2.0-8.3) x10*3/uL Absolute Nucleated RBC 0.000 (0.0-0.012) X10*3/uL Nucleated RBC % (auto) 0.0 (0.0-0.2) /100WBC Smear Tech's Comments VERIFIED Sodium 139 (135-145) mmol/L Potassium 3.9 (3.3-5.1) mmol/L Chloride 108 (96-108) mmol/L Carbon Dioxide 23 (22-29) mmol/L Anion Gap 12 (12-20) BUN 15 (9-16) mg/dL Creatinine 0.73 (0.5-1.4) mg/dL Estim Creat Clear Calc 112.3 Estimated GFR > 60 Random Glucose 109 (60-115) mg/dL Calcium 8.8 (8.4-10.2) mg/dL Magnesium 2.1 (1.6-2.6) mg/dL Total Bilirubin 0.5 (0.0-1.0) mg/dL Direct Bilirubin 0.1 (0.0-0.5) mg/dL AST 19 (5-31) U/L ALT 11 (0-31) U/L Alkaline Phosphatase 68 (39-117) U/L Troponin I High Sens < 2.7 (<3.5-17.0) ng/L Total Protein 7.5 (6.5-8.0) g/dL Albumin 4.0 (3.5-5.0) g/dL Urine Color Yellow Urine Appearance Clear Urine pH 6.5 (5.0-9.0) Ur Specific [place] <= 1.005 (1.005-1.025) Urine Protein Negative (Neg-Trace) mg/dL Urine Glucose (UA) Negative (Negative) mg/dL Urine Ketones Negative (Negative) mg/dL Urine Blood Trace H (Negative) Urine Nitrite Negative (Negative) Ur Leukocyte Esterase Negative (Negative) Urine RBC 0-2 (0-2) /HPF Urine WBC 0-5 (0-5) /HPF Ur Squamous Epith Cells 0-2 (0-2) /HPF Urine Bacteria None Seen (None Seen) Hyaline Casts 0-2 (0-2) /LPF Urine Test NEGATIVE (NEGATIVE) Influenza Type A (PCR) NEGATIVE (Negative) Influenza Type B (PCR) NEGATIVE (Negative) RSV RNA Qual (PCR) NEGATIVE (Negative) SARS-CoV-2 RNA (RT-PCR) NEGATIVE (Negative) S. pyogenes GrpA VERONIKA Negative (Negative) Discharge Plan Discharge Clinical Impression: Acute viral syndrome Patient Disposition: Home, Self-Care Instructions: Viral Syndrome (ED) Prescriptions: No Action acetaminophen 500 mg tablet 1,000 mg PO QID PRN (Reason: pain) Qty: 30 0RF cyclobenzaprine 5 mg tablet 5 mg PO TID PRN (Reason: muscle spasm) Qty: 10 0RF ibuprofen 600 mg tablet 600 mg PO Q6H PRN (Reason: pain) Qty: 20 0RF cefdinir 300 mg capsule 300 mg PO BID 10 Days Qty: 20 0RF Referrals: Romain Gold III, MD [Primary Care Provider] - 06/23/24 Print Language: Swiss
--- NOTE | 2024-06-21 14:53 | ECG_ITS ---
Test Reason : DIZZINESS Blood Pressure : / mmHG Vent. Rate : 085 BPM Atrial Rate : 085 BPM P-R Int : 142 ms QRS Dur : 086 ms QT Int : 370 ms P-R-T Axes : 047 003 009 degrees QTc Int : 440 ms Normal sinus rhythm Minimal voltage criteria for LVH, may be normal variant ( R in aVL ) Nonspecific T wave abnormality Abnormal ECG When compared to the previous EKG of Vent. rate has decreased Referred By: Ally Gorman Electronically Signed By:ASIF MAYS MD
[2024-06-21 15:23] LABS: Eosinophils Absolute Auto 0.1 X10*3/uL (0.0-0.4); Imm Gran Abs Auto 0.01 X10*3/uL (0.00-0.03); Imm Gran Pct Auto 0.2 % (0.0-0.4); MANUAL DIFF FLAG SCAN; Mean Platelet Volume 10.9 fL (9.4-12.3); PLT CLUMP 1; SCAN SMEAR FLAG 1
[2024-06-21 15:25] LABS: Basophils Percent Auto 0.2 % (0-2); Eosinophils Percent Auto 2.6 % (0-4); Hematocrit 36.5 % (37.0-47.0); Hemoglobin 12.4 g/dl (12.0-16.0); Lymphocytes Absolute Auto 0.7 X10*3/uL (1.2-4.9); Lymphocytes Percent Auto 14.9 % (20-40); Mean Corpuscular Hemoglobin 29.7 pg (27.0-33.0); Mean Corpuscular Volume 87.5 fL (80.0-98.0); Monocytes Absolute Auto 0.4 X10*3/uL (0.1-1.2); Monocytes Percent Auto 7.6 % (2-11); Neutrophils Absolute Auto 3.5 x10*3/uL (2.0-8.3); Neutrophils Percent Auto 74.5 % (45-73); Red Blood Count 4.17 X10*6/uL (4.20-5.50); Red Cell Distribution Width 12.4 % (11.0-16.0)
[2024-06-21 15:28] LABS: IDNOW Serial# 08D9AD1C; Strep A Nucleic Acid Negative (Negative)
[2024-06-21 15:35] LABS: Alanine Aminotransferase 11 U/L (0-31); Anion Gap 12 (12-20); Aspartate Amino Transferase 19 U/L (5-31); Bilirubin Direct 0.1 mg/dL (0.0-0.5); Bilirubin Total 0.5 mg/dL (0.0-1.0); Blood Urea Nitrogen 15 mg/dL (9-16); Calcium 8.8 mg/dL (8.4-10.2); Carbon Dioxide 23 mmol/L (22-29); Chloride 108 mmol/L (96-108); Creatinine Clr Calc Pharmacy 112.3; Estimated Glomerular Filt Rate > 60; Glucose Random 109 mg/dL (60-115); Magnesium 2.1 mg/dL (1.6-2.6); Potassium 3.9 mmol/L (3.3-5.1); Sodium 139 mmol/L (135-145); Total Protein 7.5 g/dL (6.5-8.0)
[2024-06-21 15:40] LABS: Troponin-I High Sensitivity < 2.7 ng/L (<3.5-17.0)
[2024-06-21 15:47] LABS: White Blood Count 4.6 X10*3/uL (4.8-10.8)
[2024-06-21 15:48] LABS: Platelet Count 153 X10*3/uL (160-400); SLIDE REVIEW VERIFIED
[2024-06-21 15:55] LABS: Alkaline Phosphatase 68 U/L (39-117)
[2024-06-21 16:04] LABS: Influenza A PCR NEGATIVE (Negative); Influenza B PCR NEGATIVE (Negative); Resp Syncy Virus RNA Qual PCR NEGATIVE (Negative); SARS COV2 PCR INHOUSE NEGATIVE (Negative)
--- NOTE | 2024-06-21 17:05 | ED.GENADULT ---
HPI - General Adult General Chief complaint: General Medical Stated complaint: dizzy Time Seen by Provider: 06/21/24 16:16 History of Present Illness HPI narrative: Patient is a 39-year-old female with no significant past medical history. Patient been taking care of her child who sick. Feels lightheaded. Having some fever at home. No coughing or congestion. The child was diagnosed with influenza today. Patient feels tired. There is no pain on urination. There is no chest pain. There is no focal weakness. There is no bloody stool. Patient denies any nausea vomiting. Denies any diarrhea. She is from home. Have some congestion in her sinuses. Related Data Previous Rx's ?Medication ?Instructions ?Recorded acetaminophen 500 mg tablet 1,000 mg (2 x 500 mg) PO QID PRN 03/19/22 pain #30 tabs cyclobenzaprine 5 mg tablet 5 mg PO TID PRN muscle spasm #10 03/19/22 tabs ibuprofen 600 mg tablet 600 mg PO Q6H PRN pain #20 tabs 03/19/22 cefdinir 300 mg capsule 300 mg PO BID 10 days #20 caps 09/23/22 Allergies Allergy/AdvReac Type Severity Reaction Status Date / Time penicillin G [PENICILLIN G] Allergy Unknown SWELLING Verified 06/21/24 14:53 Review of Systems Review of Systems: Positive generalized malaise weakness Yes all other systems are reviewed and are negative [facility] Past Medical History Attestation statement: The following information was validated with the patient. Medical History cardiomyopathy Social History Social History Alcohol intake: never Smoked in Last 30 Days: No Use of substances other than those prescribed or required for medical reasons: No Advance Directives: No Advance Directives Information Provided: No Do you have a plan to hurt others: No Plan Patient : No Physical Exam ED Vital Signs: Vital Signs - 24 hr 06/21/24 14:51 06/21/24 17:07 06/21/24 17:07 Temperature 98.2 F 98.8 F Pulse Rate 91 81 79 Respiratory Rate 16 20 Blood Pressure 119/83 130/73 Pulse Oximetry 99 99 Oxygen Delivery Method Room Air Room Air 06/21/24 17:09 06/21/24 17:11 Temperature Pulse Rate 81 89 Respiratory Rate Blood Pressure 131/73 119/76 Pulse Oximetry Oxygen Delivery Method BMI result Body Mass Index 35.3 Appearance: Alert. Oriented X3. No acute distress. Eyes: Pupils equal, round and reactive to light. ENT: Pharynx normal. Neck: Normal inspection. Neck supple. No lymph nodes noted. No crepitus CVS: Normal heart rate and rhythm. Pulses normal. Normal S1 and S2 Respiratory: No respiratory distress. Breath sounds normal. No Wheezing. No rales Abdomen: Soft and nontender. No rigidity. No distention. good BS x4 Skin: Skin warm and dry. Normal skin color. Normal skin turgor. Extremities: No lower extremity edema. Neurovascular intact to all extremities. No Lacerations. No Rash Neuro: Oriented X 3. No motor deficit. No sensory deficit. Moving all extermities. No slurred speech Medical Decision Making Medical Decision Making [facility] Narrative: Well-appearing no acute distress. Neurologically intact. Patient's vital signs are normal O2 sats 99% on room air. Flu COVID, RSV were all negative. Patient's hemoglobin is normal no signs of anemia. Patient's urine and test is pending. Currently in no acute distress. Electrolytes are normal. Kidney function is normal. Liver function test is normal. Troponin is normal. Patient's EKG is normal. Urine is not infected. Urine test was negative. Patient well-appearing. Question viral syndrome. Will discharge patient home. Differential Diagnosis Differential Diagnoses: The differential diagnosis associated with the presentation includes UTI, , influenza Admission/Observation Consideration of admission/observation: Escalation of care including admission/observation considered Lab Data [facility] Lab Attestation statement: I reviewed the patient's lab results. 06/21/24 15:09 06/21/24 15:09 Labs: Lab Results 06/21/24 06/21/24 Range/Units 15:09 17:21 WBC 4.6 L (4.8-10.8) X10*3/uL RBC 4.17 L (4.20-5.50) X10*6/uL Hgb 12.4 (12.0-16.0) g/dl Hct 36.5 L (37.0-47.0) % MCV 87.5 (80.0-98.0) fL MCH 29.7 (27.0-33.0) pg MCHC 34.0 (31.0-35.0) g/dl RDW 12.4 (11.0-16.0) % Plt Count 153 L (160-400) X10*3/uL MPV 10.9 (9.4-12.3) fL Immature Gran % (Auto) 0.2 (0.0-0.4) % Neut % (Auto) 74.5 H (45-73) % Lymph % (Auto) 14.9 L (20-40) % Grimes % (Auto) 7.6 (2-11) % Eos % (Auto) 2.6 (0-4) % Baso % (Auto) 0.2 (0-2) % Lymph # (Auto) 0.7 L (1.2-4.9) X10*3/uL [place]imes # (Auto) 0.4 (0.1-1.2) X10*3/uL Eos # (Auto) 0.1 (0.0-0.4) X10*3/uL Baso # (Auto) 0.0 (0.0-0.2) X10*3/uL Abs Immat Gran (auto) 0.01 (0.00-0.03) X10*3/uL Absolute Neuts (auto) 3.5 (2.0-8.3) x10*3/uL Absolute Nucleated RBC 0.000 (0.0-0.012) X10*3/uL Nucleated RBC % (auto) 0.0 (0.0-0.2) /100WBC Smear Tech's Comments VERIFIED Sodium 139 (135-145) mmol/L Potassium 3.9 (3.3-5.1) mmol/L Chloride 108 (96-108) mmol/L Carbon Dioxide 23 (22-29) mmol/L Anion Gap 12 (12-20) BUN 15 (9-16) mg/dL Creatinine 0.73 (0.5-1.4) mg/dL Estim Creat Clear Calc 112.3 Estimated GFR > 60 Random Glucose 109 (60-115) mg/dL Calcium 8.8 (8.4-10.2) mg/dL Magnesium 2.1 (1.6-2.6) mg/dL Total Bilirubin 0.5 (0.0-1.0) mg/dL Direct Bilirubin 0.1 (0.0-0.5) mg/dL AST 19 (5-31) U/L ALT 11 (0-31) U/L Alkaline Phosphatase 68 (39-117) U/L Troponin I High Sens < 2.7 (<3.5-17.0) ng/L Total Protein 7.5 (6.5-8.0) g/dL Albumin 4.0 (3.5-5.0) g/dL Urine Color Yellow Urine Appearance Clear Urine pH 6.5 (5.0-9.0) Ur Specific [place] <= 1.005 (1.005-1.025) Urine Protein Negative (Neg-Trace) mg/dL Urine Glucose (UA) Negative (Negative) mg/dL Urine Ketones Negative (Negative) mg/dL Urine Blood Trace H (Negative) Urine Nitrite Negative (Negative) Ur Leukocyte Esterase Negative (Negative) Urine RBC 0-2 (0-2) /HPF Urine WBC 0-5 (0-5) /HPF Ur Squamous Epith Cells 0-2 (0-2) /HPF Urine Bacteria None Seen (None Seen) Hyaline Casts 0-2 (0-2) /LPF Urine Test NEGATIVE (NEGATIVE) Influenza Type A (PCR) NEGATIVE (Negative) Influenza Type B (PCR) NEGATIVE (Negative) RSV RNA Qual (PCR) NEGATIVE (Negative) SARS-CoV-2 RNA (RT-PCR) NEGATIVE (Negative) S. pyogenes GrpA VERONIKA Negative (Negative) Independent Interpretation I performed an independent interpretation of an: EKG (My interpretation patient's EKG showed a sinus rhythm heart rate is 90 [place] QRS QTC normal there is diffuse T-wave flattening noted.) External Record Review No significant old records here at [facility] Chronic Conditions Question history of cardiomyopathy Discharge Plan Discharge Clinical Impression: Acute viral syndrome Patient Disposition: Home, Self-Care Instructions: Viral Syndrome (ED) Prescriptions: No Action acetaminophen 500 mg tablet 1,000 mg PO QID PRN (Reason: pain) Qty: 30 0RF cyclobenzaprine 5 mg tablet 5 mg PO TID PRN (Reason: muscle spasm) Qty: 10 0RF ibuprofen 600 mg tablet 600 mg PO Q6H PRN (Reason: pain) Qty: 20 0RF cefdinir 300 mg capsule 300 mg PO BID 10 Days Qty: 20 0RF Referrals: Romain Gold III, MD [Primary Care Provider] - 06/23/24 Print Language: Bangladeshi
[2024-06-21 17:07] VITALS: BP 130/73; PULSE 79; PULSE 81; RESP 20; TEMP 37.1; O2SAT 99
[2024-06-21 17:09] VITALS: BP 131/73; PULSE 81
[2024-06-21 17:11] VITALS: BP 119/76; PULSE 89
[2024-06-21 17:41] LABS: UPreg QC Valid YES; Urine Pregnancy NEGATIVE (NEGATIVE)
[2024-06-21 17:42] LABS: Appearance Urine Clear; Color Urine Yellow; Glucose Urine UA Negative (Negative); Leukocyte Esterase Urine Negative (Negative); Nitrite Urine Negative (Negative); PH 6.5 (5.0-9.0); Specific Gravity - Urine <= 1.005 (1.005-1.025); UMIC TRIGGER UACC YES; Urine Blood Trace (Negative); Urine Ketones Negative (Negative); Urine Protein Negative (Neg-Trace)
[2024-06-21 17:43] LABS: Bacteria Urine None Seen (None Seen); Hyaline Casts Urine 0-2 /LPF (0-2); RBC Urine 0-2 /HPF (0-2); Squamous Epithelial Cell Urine 0-2 /HPF (0-2); WBC Urine 0-5 /HPF (0-5)
[2024-06-21 18:03] VITALS: BP 119/76; PULSE 89; RESP 20; TEMP 37.1; O2SAT 99
== END 2024-06-21 18:05 | disposition home or self-care (01) ==
PROVIDERS: Physician Assistant; Emergency Provider Emergency Medicine Emergency Medical Services; PCP Internal Medicine
DX: B34.9 Viral infection, unspecified (principal); R42 Dizziness and giddiness; Z03.818 Encounter for observation for suspected exposure to other biological agents ruled out
CPT/HCPCS: 0241U; 80048; 80076; 81001; 81025; 83735; 84484; 85025; 87651; 93005; 99284

== ENCOUNTER → 2024-06-21 14:53 | Outpatient (BNV) | payer OTHER, SELFPAY | PROVIDERS: Emergency Provider Emergency Medicine Emergency Medical Services; PCP Internal Medicine; Visit Provider Internal Medicine Cardiovascular Disease | DX: R42 Dizziness and giddiness (principal) | CPT/HCPCS: 93010 ==

== ENCOUNTER 2025-05-31 12:44 | Emergency (ER) | payer OTHER, SELFPAY ==
--- OUTSIDE RECORDS SUMMARY | 2025-05-29 13:00 | XMS_ITS | Encounter Summary ---
Author Organization [employer] Address [address] [place] [address] Care Team Providers Care Business Risk Analyst Name Role Phone Unavailable Primary Care Provider Unavailabl e Reason for Visit * Reason Comments Dental Pain Encounter Details Date Type Department Care Team (Late st Contact Info) Description 05/29/2025 1:00 PM EST Office Visit [facility] [address] [place] [address] Tru Talbert DDS [address] [place] [address] Social History Tobacco Use Types Packs/Day Years Used Date Smoking Tobacco: Never Smokeless Tobacco: Current Comments Unknown Sex and Gender Information Value Date Recorded Sex Assigned at Female 04/17/2022 10:28 AM EDT Legal Sex Female 10:28 AM EDT Gender Identity Female 04/17/2022 10:28 AM EDT Sexual Orientation Straight 04/17/2022 10 :28 AM EDT documented as of this encounter Progress Notes * Tru Talbert DDS - 05/29/2025 1:00 PM EST Dental procedures in this visit D0140 - LIMITED ORAL EVALUATION - PROBLEM FOCUSED 20 (Completed) Service provider: Tru Talbert DDS Billing provider: Celia Cuellar DDS [id number] - CASE PRESENTATION, DETAILED AND EXTENSIVE TREATMENT PLANNING (Completed) Service provider: Tru Talbert DDS Billing provider: Celia Cuellar DDS [id number] - BITEWING - SINGLE RADIOGRAPHIC IMAGE (Completed) Service provider: Tru Talbert DDS Billing provider: Celia Cuellar DDS [id number] - INTRAORAL - PERIAPICAL FIRST RADIOGRAPHIC IMAGE 20 (Completed) Service provider: Tru Talbert DDS Billing provider: Celia Cuellar DDS Patient ID: Sindy Davalos is a 40 y.o. female. Time Out: Date: 05/29/2025 Location: [facility] Tooth: #20 Procedure: Exam and Emergency Verified the above with patient, hair or beauty salon assistant, and provider. Confirmed via patient's chart, intraorally and by radiographs. Civil Preparedness Training Officer: not applicable 40 y.o. y/o female presents for limited exam with Dr. Tru Talbert DDS Medical history: Reviewed in EHR Vitals: There were no vitals taken for this visit. Allergies: Reviewed in EHR Medications: Reviewed in EHR Radiographs taken: Yes CHIEF COMPLAINT: I have been having a lot of pain on this tooth right here at the bottom, I am scheduled to have it removed but the pain has been really bad Discussion: Patient presented at consult referring pain around the area of tooth 20. Radiographic observation presents no PARL; furthermore radiograph shows a temporary mandaeism material likely placed after caries control performed on 02/26/2025 (please refer to Dr. Hoang's notes on this date). It was then recommended that both teeth 20-21 receive RCT as caries had already reached the nerve.RCT was performed on tooth [address] Hoang on 03/23/2025. On today's visit tooth 20 was endo tested, results as follows: Percussion +, Palpation - , Cold -, Air -, no intra or extra oral swelling noted, diagnosis: pulp necrosis with SAP. Patient was under the impression that the tooth had to be extracted and had an appointment set up for this procedure. Advised patient that we can attempt at saving this tooth with a RCT, Post and Core. Patient receptive to treatment. Recommended OTC pain medsfor pain management and instructed on at home care as well as protocol in case of worsening symptoms. No antibiotics rendered on this visit as no signs of infection were present. NV: RCT #20 Provider: Dr. Tru Talbert DDS Dental Film Writer: Romaine Hatch Attending: Dr. Celia Cuellar * Tru Talbert DDS - 05/29/2025 1:00 PM EST Patient contacted the ON-Call line in the morning of today Sunday05/30/2025, referring facial swelling and severe nocturnal pain over last night. Patient was contacted to confirm symptoms and to receive instructions on how to manage the situation. Upon return of call, patient confirms to have been prescribed and having already retrieved antibiotics from the pharmacy. Patient was advised to rigorously follow the taking of this antibiotic, continue taking Ibuprofen and perform salt water rinses every 2-3 hours. Additionally patient was advised that if she is unable to swallow, breath adequately or presents any constriction of the airways, to please call 911 or visit her nearest emergency room if capable. Patient is to call back should any further assistance is needed. - Dr. Talbert documented in this encounter Plan of Treatment Scheduled Orders Name Type Priority Associated Diagnoses Orde r Schedule 20 20 ENDODONTIC THERAPY, PREMOLAR TOOTH Dental Routine 1 Occurr ences starting 05/29/2025 CASE PRESENTATION, DETAILED AND EXTENSIVE TREATMENT PLANNING Dental Routine 1 Occurrences starting 05/30/2025 21 21 CROWN PREP Dental Routine 1 Occurr ences starting 05/30/2025 documented as of this encounter Procedures Procedure Name Priority Date/Time Associated Diagnosis Comments 20 LIMITED ORAL EVALUATION - PROBLEM FOCUSED Routine 05/29/2025 1:00 PM EST 20 INTRAORAL - PERIAPICAL FIRST RADIOGRAPHIC IMAGE Routine 05/29/2025 1:00 PM EST CASE PRESENTATION, DETAILED AND EXTENSIVE TREATMENT PLANNING Routine 05/29/2025 1:00 PM EST BITEWING - SINGLE RADIOGRAPHIC IMAGE Routine 05/29/2025 1:00 PM EST documented in this encounter Visit Diagnoses Not on filedocumented in this encounter
[2025-05-31] VITALS (7 sets, daily range): BP systolic 110–147; BP diastolic 54–84; PULSE 77–114; RESP 18–20; TEMP 36.9–37.2; O2SAT 96–100; BMI 34.1
--- NOTE | ~2025-05-31 | CT_ITS ---
CLINICAL HISTORY: ?ludwigs, patient with tooth infection Exam: Contrast-enhanced CT neck soft tissues with multiplanar reformats. Comparison: None. Findings: Mucosal structures reveal no significant mucosal thickening or mucosal lesions. Epiglottis is unremarkable. No neck masses or adenopathy are appreciated. Scattered level 1 level 2 lymph nodes measuring less than 1 cm short axis dimension may be reactive. Salivary glands appear unremarkable. Thyroid gland is prominent, with isthmus measuring up to 16 mm AP thickness. No definable focal lesions. There is edema of the subcutaneous soft tissues in the submandibular region, [id number], along with some mild fluid both superficial and deep to the platysma muscle common nonspecific although suggesting cellulitis. No definable circumscribed collections are appreciated. Airway appears patent. Visualized pulmonary apices are clear. Visualized brain parenchyma reveals no acute abnormalities. Visualized paranasal sinuses and mastoid air cells are grossly clear. Osseous structures reveal no destructive osseous lesions. Impression: 1. Edema of the subcutaneous soft tissues as well as deep to the platysma muscle in the submandibular region, [id number], with some mild non circumscribed fluid, findings suggest cellulitis. No definable circumscribed collection or abscess. The airway appears patent. This document has been electronically signed by: Elie Robin MD on 05/31/2025 17:52:52
--- NOTE | 2025-05-31 12:49 | ED.GENADULT ---
HPI - General Adult General Chief complaint: Dental/Oral Stated complaint: dental infection Time Seen by Provider: 05/31/25 15:04 Source: patient, RN notes reviewed and old records reviewed Mode of arrival: ambulatory Limitations: no limitations History of Present Illness ED Provider: NERISSA Martin HPI narrative: 40-year-old female with medical history of cardiomyopathy, hypothyroidism presents to the ED due to facial swelling. Patient states that she has had issues with her bottom left molar and had an appointment for extraction on Sunday 05/27 but had to cancel her appointment. Patient states she woke up 2 days ago with pain in the molar and had an emergency dental visit with Xray imaging. Patient reports the dentist was not concerned for infection and was discharged to follow up for extraction. Patient states she woke up yesterday with facial swelling and pain which has progressively worsened, is now radiating down the neck and is having difficulty opening her mouth. She went to urgent care yesterday and was prescribed a course of azithromycin. She has taken 2 doses. Patient woke up today with worsening swelling and pain. Denies chest pain, shortness of breath, abdominal pain, nausea, vomiting, headaches, visual changes, urinary symptoms MD complaint: L sided dental pain with facial swelling and induration Related Data Previous Rx's ?Medication ?Instructions ?Recorded acetaminophen 500 mg tablet 1,000 mg (2 x 500 mg) PO QID PRN 03/19/22 pain #30 tabs cyclobenzaprine 5 mg tablet 5 mg PO TID PRN muscle spasm #10 03/19/22 tabs ibuprofen 600 mg tablet 600 mg PO Q6H PRN pain #20 tabs 03/19/22 cefdinir 300 mg capsule 300 mg PO BID 10 days #20 caps 09/23/22 Allergies Allergy/AdvReac Type Severity Reaction Status Date / Time penicillin G (PENICILLIN G) Allergy Unknown SWELLING Verified 05/31/25 12:53 [facility] Past Medical History Medical History cardiomyopathy Social History Social History Alcohol intake: never Physical Exam ED Vital Signs: Vital Signs - 24 hr 05/31/25 12:49 05/31/25 15:05 05/31/25 17:22 Temperature 99.0 F 98.8 F 98.5 F Pulse Rate 114 H 77 84 Respiratory Rate 20 18 18 Blood Pressure 147/75 H 110/54 L 116/62 Pulse Oximetry 98 100 96 Oxygen Delivery Method Room Air Room Air Room Air 05/31/25 19:10 Temperature 98.4 F Pulse Rate 87 Respiratory Rate 18 Blood Pressure 132/79 Pulse Oximetry 98 Oxygen Delivery Method Room Air BMI result Body Mass Index 34.1 Course Course Course Narrative: This is a Rapid Medical Examination (RME) performed by Esther Yanes PA-C in triage. Full HPI, ROS, assessment and treatment plan per primary provider in the Main ED. Hx: 40 yo F here w/ left facial swelling x yesterday. assoc myalgias, chills, subjective fevers. took tylenol around 0700 this morning. had urgent dental visit 3 days ago - scheduled for root canal. started on abx yesterday. took two tabs. Plan: labs, lactic, blood cultures Medications Administered Discontinued Medications Generic Name Dose Route Start Last Admin Trade Name Surendraq PRN Reason Stop Dose Admin Clonazepam 1 mg 05/31/25 21:38 05/31/25 21:41 Clonazepam 1 Mg Tablet PO 05/31/25 21:39 1 mg ONCE ONE Administration Dexamethasone Sodium Phosphate 10 mg 05/31/25 20:36 05/31/25 20:53 Dexamethasone Sod Phosphate 10 Mg/Ml Vial IVPUSH 05/31/25 20:37 10 mg ONCE ONE Administration Hydromorphone HCl 0.5 mg 05/31/25 16:18 05/31/25 16:26 Hydromorphone Hcl 0.5 Mg/0.5 Ml Syringe IVPUSH 05/31/25 16:19 0.5 mg ONCE ONE Administration Protocol Hydromorphone HCl 0.5 mg 05/31/25 21:38 05/31/25 21:41 Hydromorphone Hcl 0.5 Mg/0.5 Ml Syringe IVPUSH 05/31/25 21:39 0.5 mg ONCE ONE Administration Protocol Ceftriaxone Sodium 2 gm/ 50 mls @ 100 mls/hr 05/31/25 20:36 05/31/25 21:41 Sodium Chloride IV 05/31/25 21:05 Infused ONCE ONE Infusion Metronidazole 500 mg in 100 mls @ 100 mls/hr 05/31/25 20:36 05/31/25 20:54 Flagyl IV 05/31/25 21:35 100 mls/hr ONCE ONE Administration Iohexol 100 ml 05/31/25 17:17 05/31/25 17:18 Iohexol 350 Mg/Ml 100 Ml Infus..Btl IV 05/31/25 17:18 60 ml ONCE ONE Administration Ketorolac Tromethamine 15 mg 05/31/25 16:18 05/31/25 16:26 Ketorolac Tromethamine 15 Mg/Ml Vial IVPUSH 05/31/25 16:19 15 mg ONCE ONE Administration Medical Decision Making Medical Decision Making MDM Narrative: 40-year-old female with medical history of cardiomyopathy, hypothyroidism presents to the ED due to facial swelling. Patient states that she has had issues with her bottom left molar and had an appointment for extraction on Sunday 05/27 but had to cancel her appointment. Patient was seen by urgent care yesterday and discharged with course of azithromycin which she has taken 2 doses of. Patient reporting progressively worsening pain and swelling of the left side of her face that is now radiating into the left side of the neck, with difficulty opening her mouth. VS on initial observation-BP 147/75, pulse rate of 114, respiratory rate of 20, afebrile with an oral temp of 99.0?, O2 saturation 98% on room air. On physical exam patient is uncomfortable appearing with significant swelling of the left side of the face with mild erythema, and warmth, oropharynx is clear, patient does have poor dentition without any identifiable fluctuance or abscess along the gumline, submental induration that extends over the sternocleidomastoid muscle, airway is patent, tolerating oral secretions, no vocal changes, speaking in full clear sentences Labs significant for leukocytosis of 11.9 with left shift of 75.2, no evidence of anemia, H&H stable, no electrolyte abnormalities, inflammatory markers are elevated with CRP of 9.8, and ESR 59 CT neck soft tissue reveals edema of the subcutaneous soft tissues deep to the platysma muscle in the submandibular region, mild non circumscribed fluid suggestive of cellulitis, without definable circumcised collection or abscess. I am concerned for patients presentation due to significant submental induration extending into the left side neck muscles with trismus. I do not believe that patient is a candidate for outpatient antibiotic therapy as she may deteriorate quickly. I reached out to [facility] for transfer however they are closed for transfers due to capacity. I reached out to [facility] for ED to ED transfer and patient was accepted by ED Dr. Rush. VS on reassessment- BP 132/79, pulse rate of 87, respiratory rate of 18, afebrile with oral temp of 98.4?, O2 saturation 98% on room air. Patient is being medicated with 10 mg IV Decadron, 2 g IV ceftriaxone, 500 mg IV Flagyl for coverage of suspected Boy's angina. I discussed these findings and concerns with the patient who is accepting transfer to [facility]. Patient understands her condition, and is in agreement with the plan. Differential Diagnosis Differential Diagnoses: The differential diagnosis associated with the presentation includes Boy's angina Dental abscess Peritonsillar abscess RPA Cellulitis Admission/Observation Consideration of admission/observation: Escalation of care including admission/observation considered Consult Healthcare Provider Management of the patient was discussed with: Insurance Account Specialist ([facility]) Accepting ED Dr. Rush Lab Data MDM Lab Attestation statement: I reviewed the patient's lab results. 05/31/25 13:40 05/31/25 13:40 Labs: Lab Results 05/31/25 Range/Units 13:40 WBC 11.9 H (4.8-10.8) X10*3/uL RBC 4.34 (4.20-5.50) X10*6/uL Hgb 12.8 (12.0-16.0) g/dl Hct 38.8 (37.0-47.0) % MCV 89.4 (80.0-98.0) fL MCH 29.5 (27.0-33.0) pg MCHC 33.0 (31.0-35.0) g/dl RDW 12.6 (11.0-16.0) % Plt Count 200 D (160-400) X10*3/uL MPV 11.0 (9.4-12.3) fL Immature Gran % (Auto) 0.4 (0.0-0.4) % Neut % (Auto) 75.2 H (45-73) % Lymph % (Auto) 14.7 L (20-40) % [place] % (Auto) 8.6 (2-11) % Eos % (Auto) 0.8 (0-4) % Baso % (Auto) 0.3 (0-2) % Lymph # (Auto) 1.8 (1.2-4.9) X10*3/uL [place] # (Auto) 1.0 (0.1-1.2) X10*3/uL Eos # (Auto) 0.1 (0.0-0.4) X10*3/uL Baso # (Auto) 0.0 (0.0-0.2) X10*3/uL Abs Immat Gran (auto) 0.05 H (0.00-0.03) X10*3/uL Absolute Neuts (auto) 9.0 H (2.0-8.3) x10*3/uL Absolute Nucleated RBC 0.000 (0.0-0.012) X10*3/uL Nucleated RBC % (auto) 0.0 (0.0-0.2) /100WBC Smear Tech's Comments VERIFIED ESR 59 H (1-20) MM/HR Sodium 139 (135-145) mmol/L Potassium 3.8 (3.3-5.1) mmol/L Chloride 105 (96-108) mmol/L Carbon Dioxide 23 (22-29) mmol/L Anion Gap 15 (12-20) BUN 9 (9-16) mg/dL Creatinine 0.72 (0.5-1.4) mg/dL Estim Creat Clear Calc 110.6 Estimated GFR > 60 Random Glucose 102 (60-115) mg/dL Lactic Acid 1.3 (0.5-2.0) mmol/L Calcium 9.1 (8.4-10.2) mg/dL Magnesium 2.2 (1.6-2.6) mg/dL Total Bilirubin 0.6 (0.0-1.0) mg/dL AST 20 (5-31) U/L ALT 15 (0-31) U/L Alkaline Phosphatase 77 (39-117) U/L C-Reactive Protein 9.88 H (< or = 0.50) mg/dL Total Protein 7.8 (6.5-8.0) g/dL Albumin 4.4 (3.5-5.0) g/dL Beta HCG, Quant < 2 mIU/mL Independent Interpretation I performed an independent interpretation of an: CT Scan Interpretation: I personally interpreted the CT neck soft tissue which reveals edema of the soft tissues, without circumcised collection or abscess, I agree with the radiologist's interpretation Radiology Impression Discussion of test interpretation with radiology: I have reviewed the radiologist's reading. Radiologist Impression: CT neck soft tissue Findings: Mucosal structures reveal no significant mucosal thickening or mucosal lesions. Epiglottis is unremarkable. No neck masses or adenopathy are appreciated. Scattered level 1 level 2 lymph nodes measuring less than 1 cm short axis dimension may be reactive. Salivary glands appear unremarkable. Thyroid gland is prominent, with isthmus measuring up to 16 mm AP thickness. No definable focal lesions. There is edema of the subcutaneous soft tissues in the submandibular region, [id number], along with some mild fluid both superficial and deep to the platysma muscle common nonspecific although suggesting cellulitis. No definable circumscribed collections are appreciated. Airway appears patent. Visualized pulmonary apices are clear. Visualized brain parenchyma reveals no acute abnormalities. Visualized paranasal sinuses and mastoid air cells are grossly clear. Osseous structures reveal no destructive osseous lesions. Impression: 1. Edema of the subcutaneous soft tissues as well as deep to the platysma muscle in the submandibular region, [id number], with some mild non circumscribed fluid, findings suggest cellulitis. No definable circumscribed collection or abscess. The airway appears patent. This document has been electronically signed by: Elie Roibn MD on 05/31/2025 17:52:52 Dictated By: Elie Robin MD Signed By: <Electronically signed by Elie Robin MD in > 05/31/25 0689 External Record Review External record reviewed: Inpatient record, Office record and Outpatient record Chronic Conditions Patient?s care impacted by: Other ( cardiomyopathy, hypothyroidism) Critical Care Time Critical Care Time Critical Care Time: Yes Total Critical Care Time: 47 Attestation: I personally provided critical care services to this patient for a total of 47 minutes, excluding time spent on separately billable procedures. The patient was critically ill with suspected Ludwigs angina , placing them at high risk for imminent life-threatening deterioration involving systems. Critical care time included bedside evaluation, hemodynamic and clinical monitoring, interpretation of laboratory and imaging data, management of IV fluids, IV antibiotics, and medications, adjustment of treatment based on response, coordination of care with consultants, medical staff at tertiary [facility] for acute transfer of care and communication with nursing staff. These services required continuous physician presence and complex decision-making to stabilize the patient and prevent further deterioration. Discharge Plan Discharge Clinical Impression: Dental abscess Patient Disposition: er [facility] Transfer Details: accepting ED physician: Dr. Rush Prescriptions: No Action acetaminophen 500 mg tablet 1,000 mg PO QID PRN (Reason: pain) Qty: 30 0RF cyclobenzaprine 5 mg tablet 5 mg PO TID PRN (Reason: muscle spasm) Qty: 10 0RF ibuprofen 600 mg tablet 600 mg PO Q6H PRN (Reason: pain) Qty: 20 0RF cefdinir 300 mg capsule 300 mg PO BID 10 Days Qty: 20 0RF Interventions: Acute Care Transfer Worksheet (ED) Last Done: 05/31/25 21:46 Discharge Date/Time: 05/31/25 21:58 Print Language: Azeri
[2025-05-31 14:04] LABS: Alanine Aminotransferase 15 U/L (0-31); Albumin Level 4.4 g/dL (3.5-5.0); Alkaline Phosphatase 77 U/L (39-117); Anion Gap 15 (12-20); Aspartate Amino Transferase 20 U/L (5-31); Blood Urea Nitrogen 9 mg/dL (9-16); Calcium 9.1 mg/dL (8.4-10.2); Carbon Dioxide 23 mmol/L (22-29); Chloride 105 mmol/L (96-108); Creatinine Clr Calc Pharmacy 110.6; Estimated Glomerular Filt Rate > 60; Magnesium 2.2 mg/dL (1.6-2.6); Potassium 3.8 mmol/L (3.3-5.1); Sodium 139 mmol/L (135-145); Total Protein 7.8 g/dL (6.5-8.0)
[2025-05-31 14:21] LABS: Hematocrit 38.8 % (37.0-47.0); Hemoglobin 12.8 g/dl (12.0-16.0); Imm Gran Abs Auto 0.05 X10*3/uL (0.00-0.03); Imm Gran Pct Auto 0.4 % (0.0-0.4); Lymphocytes Absolute Auto 1.8 X10*3/uL (1.2-4.9); MANUAL DIFF FLAG SCAN; Mean Corpuscular HGB Conc 33.0 g/dl (31.0-35.0); Mean Corpuscular Hemoglobin 29.5 pg (27.0-33.0); Mean Corpuscular Volume 89.4 fL (80.0-98.0); NRBC Abs Auto 0.000 X10*3/uL (0.0-0.012); NRBC Pct Auto 0.0 /100WBC (0.0-0.2); PLT CLUMP 1; Red Blood Count 4.34 X10*6/uL (4.20-5.50); SCAN SMEAR FLAG 1
[2025-05-31 14:23] LABS: Platelet Count 200 X10*3/uL (160-400); White Blood Count 11.9 X10*3/uL (4.8-10.8)
--- OUTSIDE RECORDS SUMMARY | 2025-05-31 14:53 | XMS_ITS ---
Author Name [facility] Organization Unknown Care Team Organization Name Specialty Phone Email Start Date End Da te [facility] YAJAIRA YING Primary Care 04/25/2022 4
--- OUTSIDE RECORDS SUMMARY | 2025-05-31 14:53 | XMS_ITS | Clinical Summary ---
Author Organization [employer] Address [address] [place] [address] Care Team Providers Care Office Receptionist Name Role Phone Unavailable Primary Care Provider Unavailabl e Allergies Active Allergy Reactions Criticality Noted Date Comments Penicillins 11/13/2024 Medications Entresto 49-51 MG tablet Take 1 tablet by mouth 2 times daily. 5 Active clonazePAM (KlonoPIN) 1 MG tablet 0 Active carvedilol (Coreg) 25 MG tablet Take 25 mg by mouth with breakfast and with evening meal. 4 Active acetaminophen (Tylenol) 325 MG tablet Take 2 Tabs by mouth every 4 hours as needed. 0 Active cetirizine (ZyrTEC) 5 MG chewable tablet Chew Once per day. Active azithromycin (Zithromax) 250 MG tablet Take (2) tabs 1st day; take (1) tab next 4 days. 6 tablet 5 Active Additional Information Patient not taking.Reported on 02/26/2025 azithromycin (Zithromax) 250 MG tablet Take 2 tabs (500mg) on Day 1, and then 1 tab on Days 2-5. 6 tablet 5 Active Active Problems No known active problems Encounters Date Type Department Care Team Description 05/29/2025 1:00 PM EST Office Visit [facility] [address] [place] [address] Tru Talbert DDS 05/29/2025 Telephone [facility] [address] [place], [place] [phone] Tru Talbert DDS emergency dental MMIS active portal inactive 03/23/2025 1:00 PM EDT Office Visit [facility] [address] [place] [address] Zi Hoang from Last 3 Months Social History Tobacco Use Types Packs/Day Years Used Date Smoking Tobacco: Never Smokeless Tobacco: Current Tobacco Cessation:Ready to Q uit: Not Asked; Counseling Given: Not Answered Comments Unknown Sex and Gender Information Value Date Recorded Sex Assigned at Female 04/17/2022 10:28 AM EDT Legal Sex Female 10:28 AM EDT Gender Identity Female 04/17/2022 10:28 AM EDT Sexual Orientation Straight 04/17/2022 10 :28 AM EDT Last Filed Vital Signs Vital Sign Reading Time Taken Comments Blood Pressure 122/78 03/23/2025 1:09 PM EDT Pulse - - Temperature - - Respiratory Rate - - Oxygen Saturation - - Inhaled Oxygen Concentration - - Weight - - Height - - Body Mass Index - - Plan of Treatment Health Maintenance Due Date Last Done Comments Depression Screening 1983 HIV Screening 1983 Lipid Panel 1983 SDOH Screening 1983 Disability Screening 1983 Alcohol/Substance Use Screening 1995 Family Planning (PISQ) 1998 HPV Vaccines (1 - 3-dose series) 1998 Hepatitis C Screening 2001 Hepatitis B Vaccines (1 of 3 - 19+ 3-dose series) 2002 Pap Smear 02/06/2004 Cervical Cancer Screening 2013 HPV/Cotest 2013 Dental X-Ray: Full Mouth 04/30/2018 04/29/2015 Dental Oral Exam 08/29/2019 02/27/2019, 12/2018, 12/04/2017, Additional history exists Dental Prophylaxis 08/29/2019 02/27/2019, 0 08/20/2018, 12/05/2017, Additional history exists Mammogram 2023 COVID-19 Vaccine ( season) 2025 03/11/2021, 02/18/2021 Influenza Vaccine (#1) 2025 , 05/27/2021, 03/10/2020, Additional history exists Tobacco Screening 05/29/2026 05/29/2025 Dental X-Ray: Bitewings 05/30/2026 05/29/20 25, 10/30/2024, 09/13/2018, Additional history exists DTaP/Tdap/Td Vaccines (3 - Td or Tdap) 06/23/2029 06/23/2019, 04/12/2015 Zoster Vaccines (1 of 2) 2033 RSV Patients and Patients Aged 60 years or older (1 - 1-dose 75+ series) 2058 HIB Vaccines Aged Out No longer eligi ble based on patient's age to complete this topic Hepatitis A Vaccines Aged Out No long er eligible based on patient's age to complete this topic IPV Vaccines Aged Out No longer eligi ble based on patient's age to complete this topic Meningococcal B Vaccine Aged Out No l onger eligible based on patient's age to complete this topic Meningococcal Vaccine Aged Out No huma yusuf eligible based on patient's age to complete this topic Pneumococcal Vaccine: Pediatrics (0 to 5 Years) and At-Risk Patients (6 to 49) Years Aged Out No longer eligible based on patient's age to complete this topic RSV under 20 months Aged Out No longe r eligible based on patient's age to complete this topic Rotavirus Vaccines Aged Out No longer eligible based on patient's age to complete this topic Procedures Procedure Name Priority Date/Time Associated Diagnosis Comments 20 INTRAORAL - PERIAPICAL FIRST RADIOGRAPHIC IMAGE Routine 05/29/2025 1:00 PM EST BITEWING - SINGLE RADIOGRAPHIC IMAGE Routine 05/29/2025 1:00 PM EST CASE PRESENTATION, DETAILED AND EXTENSIVE TREATMENT PLANNING Routine 05/29/2025 1:00 PM EST 20 LIMITED ORAL EVALUATION - PROBLEM FOCUSED Routine 05/29/2025 1:00 PM EST CASE PRESENTATION, DETAILED AND EXTENSIVE TREATMENT PLANNING Routine 03/23/2025 1:00 PM EDT 21 ENDODONTIC THERAPY, PREMOLAR TOOTH Routine 03/23/2025 1:00 PM EDT PROPHYLAXIS - ADULT Routine 02/27/2019 1 2:00 AM EDT PERIODIC ORAL EVALUATION - ESTABLISHED PATIENT Routine 02/27/2019 12:00 AM EDT INTRAORAL - COMPLETE SERIES OF RADIOGRAPHIC IMAGES Routine 04/29/2015 12:00 AM EST from Last 3 Months or Most Recently Relevant to Health Maintenance Insurance [facility]AL-[facility] MEDICAID STAND ADULT
--- OUTSIDE RECORDS SUMMARY | 2025-05-31 14:53 | XMS_ITS | Encounter Summary ---
Author Organization [employer] Address [address] [place] [address] Care Team Providers Care Landscape Foreman Name Role Phone Unavailable Primary Care Provider Unavailabl e Encounter Details Date Type Department Care Team (Latest Contact Info) Description 11/13/2018 Abstract C CONVERSIONS Dental, Provider, DDS Social History Tobacco Use Types Packs/Day Years Used Date Smoking Tobacco: Never Assessed Comments Unknown Sex and Gender Information Value Date Recorded Sex Assigned at Female 04/17/2022 10:28 AM EDT Legal Sex Female 10:28 AM EDT Gender Identity Female 04/17/2022 10:28 AM EDT Sexual Orientation Straight 04/17/2022 10 :28 AM EDT documented as of this encounter Plan of Treatment Not on file documented as of this encounter Visit Diagnoses Not on filedocumented in this encounter
--- OUTSIDE RECORDS SUMMARY | 2025-05-31 14:53 | XMS_ITS | Clinical Summary ---
Author Organization [facility] [address] [place] [address] [place] [address] MIESHA Sandoval [phone] Phone Care Team Providers Care Delivery Driver/Customer Service Name Role Phone Romain Gold MD Primary Care Provider [phone] Allergies Active Allergy Reactions Criticality Noted Date Comments Penicillin G 12/08/2014 As chilld and had swealing Pollen Extracts 12/08/2014 Medications Naphcon-A 0.025-0.3 % ophthalmic solution PLACE 1 DROP INTO BOTH EYES 4 TIMES DAILY. 15 mL 5 04/22/20 24 Active acetaminophen (TYLENOL) 325 mg tablet Take 2 Tabs by mouth every 4 hours as needed. 09/10/19 20 Active clonazePAM (KlonoPIN) 1 mg tablet 01/12/20 20 Active fluocinonide (LIDEX) 0.05 % ointment 03/11/20 24 026 Active fluticasone propionate (FLONASE) 50 mcg/actuation nasal spray 1 [place] by Nasal route 2 times daily. 1 spray by nasal route two times a day 01/09/20 23 Active ketoconazole (NIZORAL) 2 % shampoo USE DAILY LET LATHER FOR 15 MINUTES 09/23/19 23 Active loratadine (CLARITIN) 10 mg tablet TAKE 1 TABLET BY MOUTH EVERY DAY 04/14/20 23 Active montelukast (SINGULAIR) 10 mg tabletIndicati ons:Unspecifie d eustachian tube disorder, bilateral TAKE 1 TABLET BY MOUTH EVERYDAY AT BEDTIME 90 tablet 1 05/21/20 24 Active Additional Information Patient taking differently:10 mg oralAs needed, Reported on 05/12/2025 Entresto 49-51 mg per tablet TAKE 1 TABLET BY MOUTH TWICE A DAY 60 tablet 6 10/28/19 25 Active carvediloL (COREG) 25 mg tablet TAKE 1 TABLET BY MOUTH TWICE A DAY WITH MEALS 180 tablet 3 12/02/19 25 Active ibuprofen (ADVIL,MOTRIN) 600 mg tablet Take 1 tablet (600 mg total) by mouth every 8 (eight) hours if needed for mild pain. 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 Lungs are clear but she does have some neck vein distention and some HJR. Weight is up 2 pounds. I am going to check a BNP and I may need to put her back on a small dose of diuretic. We will also check a CBC. 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 She is NYHA stage B class I. She will continue max dose carvedilol and middle dose Entresto. She had itchiness on the higher dose but is doing well on the middle dose therefore we will continue this. Given her EF has recovered there is no indication to start Farxiga or spironolactone at this time. Her cardiac MRI was reviewed with both Dr. Roy and Dr. Allen previously who did not feel that she met criteria for ICD given noncompaction in the setting of her preserved ejection fraction. Continue daily low impact exercise and low-salt diet. Her volume status is acceptable and she does not require diuretic therapy at this time. She will call the office for weight gain and more than 3 pounds in one day or 5 pounds in 1 week. Assessment & Plan (05/12/2025 9:46 AM EST): Patient is euvolemic upon exam today. MRI in 2021 did reveal an EF of 50%. She has not had any imaging since that time. For completeness we will update surveillance echocardiogram to ensure recovery in her LVEF on current medications. She will continue on carvedilol and Entresto . Should her LVEF be reduced on updated echocardiogram can consider addition of spironolactone or SGLT2. Patient did agree to have genetic testing performed today as she has 3 children. Encouraged to continue to follow a low-sodium diet and perform daily weights. Patient will reach out to our office with a weight gain of 2 pounds in 1 day or 5 pounds in 5 days accompanied by worsening peripheral edema, shortness of breath or abdominal distention. Orders: Transthoracic echocardiogram (TTE) complete with PRN contrast, bubble, strain, and 3D order panel; Future perflutren lipid microsphere (DEFINITY) 1.3 mL in sodium chloride 0.9% 8.7 mL injection Assessment & Plan (10/16/2024 9:11 AM EDT): Orders: ECG 12 lead Basic metabolic panel; Future JONATHAN positive 06/30/2020 Overview (04/23/2024): : 1:640, homogeneous 03/2020: Anti BUSINESS ACCOUNT LEADER and anti Kingsley positive. Anti-dsDNA negative. 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 I am going to increase her carvedilol again to 12.5 mg twice daily. She will continue Lasix and losartan at her current dose. She could benefit from better blood pressure and heart rate control. She has gained pounds since her last office visit. I do not believe her weight gain is secondary to volume overload. I will check a BNP to be certain. I will also check a BMP and magnesium level with increasing her carvedilol. She has been encouraged to follow a low-salt diet and work on losing weight. She has been given a goal of losing 7 pounds by her next office visit which was recommended in 2 months with me. Enlarged thyroid 01/29/2018 Endometriosis 02/25/2015 Encounters Date Type Department Care Team Description 05/12/2025 10:00 AM EST Clinical Support [facility] Cardiology [facility] [address] [facility] [address] [place] [address] 05/12/2025 9:10 AM EST Office Visit [facility] [address] [facility] [address] [place] [address] Josephine Howell NP Noncompaction cardiomyopathy (CMS/HCC V24, CMS/HCC V28) (Primary Dx) 04/16/2025 Telephone Adult Medicine [address] [phone] Romain Gold MD 03/17/2025 Results Follow-Up Adult Medicine [address] [phone] Kimberly Cheatham NP 03/16/2025 4:00 PM EDT Office Visit Adult [address] [phone] Kimberly Cheatham NP Hypothyroidism, unspecified type (Primary Dx); Anxiety disorder, unspecified type; Noncompaction cardiomyopathy (CMS/HCC V24, CMS/HCC V28); Screening mammogram for breast cancer 03/03/2025 Telephone Adult Medicine [address] [phone] Romain Gold MD from Last 3 Months Immunizations Immunization Administration Dates Next Due Influenza Quadravalent, MDCK , 0.5ml, preservative free (Flucelvax) 6mo and older 02/27/2022,05/27/2021,03/10/2020,2018 Influenza trivalent, 0.5mL, preservative free (Fluarix; FluLaval; Fluzone) ages 6mo and older (Afluria) 3 years and older 03/25/2015 Tdap Tetanus diptheria acell ular pertussis (Boostrix; Adacel) 7yo and older 04/12/2015 Surgical History Surgery Date Site/Laterality Comments SECTION PROCEDURE: HISTORICAL ; COMMENT: twin girls APPENDECTOMY PROCEDURE: NM APPENDECTOMY; COMMENT: open at 6 yrs old OTHER SURGICAL HISTORY 2012 PROCEDURE: NM CAUTERY CERVIX CRYOCAUTERY INITIAL/REPEAT; COMMENT: DEDE 2 ABDOMINAL SURGERY 02/16/2015 PROCEDURE: HISTORICAL ABDOMINAL SURGERY; COMMENT: Abdominal wall mass - endometriosis BREAST REDUCTION Bilateral PROCEDURE: NM BREAST REDUCTION; COMMENT: with 2017 revision SECTION 09/08/2019 PROCEDURE: HISTORICAL BREAST REDUCTION - 2016 Bilateral PROCEDURE: NM BREAST REDUCTION; COMMENT: required a revision TUBAL LIGATION 2019 PROCEDURE: HISTORICAL TUBAL LIGATION Medical History Medical History Date Comments Hypothyroid DX:Hypothyroid Genital HSV DX:Genital HSV Anxiety DX:Anxiety; COMM ENT: Per pt, panic attacks Polyarthralgia 04/20/2020 DX:Polyarthralgi a; COMMENT: JONATHAN, anti-Sm positive JONATHAN positive 06/30/2020 DX:JONATHAN positive; COMMENT: : 1:640, homogeneous 03/2020: Anti BUSINESS ACCOUNT LEADER and anti Kingsley positive. Anti-dsDNA negative. Family History Medical History Relation Name Comments Other: Asthma(childhood) Brother 1 No Known Problems Brother 2 maternal h lena brother No Known Problems Brother 3 paternal h lena brother No Known Problems Father Alcohol abuse Maternal Grandfather Hypertension Maternal Grandfather Arthritis Maternal Grandmother Emphysema Maternal Grandmother Osteoporosis Maternal Grandmother Asthma Mother Colon polyps Mother 40s Thyroid disease Mother hx of HTN klein d abd surgery, fibromyalgia, anxiety and depression No Known Problems Paternal Grandfather Alzheimer's disease Paternal Grandmother No Known Problems Sister 1 paternal h fci sister No Known Problems Sister 2 paternal h lena sister Breast cancer Neg Hx Cervical cancer Neg Hx Ovarian cancer Neg Hx Uterine cancer Neg Hx Relation Name Status Comments Brother 1 Alive Brother 2 Alive Brother 3 Alive Father Alive Maternal Grandfather Maternal Grandmother Alive Mother Alive Paternal Grandfather Alive Paternal Grandmother Alive Sister 1 Alive Sister 2 Alive Social History Tobacco Use Types Packs/Day Years Used Date Smoking Tobacco: Never Smokeless Tobacco: Never Tobacco Cessation:Counseling Given: Not Answered Alcohol Use Standard Drinks/Week Comments No 0 (1 standard drink = 0.6 oz pur e alcohol) Comments No Sex and Gender Information Value Date Recorded Sex Assigned at Not on file Legal Sex Female 6:15 PM EST Gender Identity Not on file Sexual Orientation Not on file Obstetrics History * This document contains information received from the source organization and may not represent a complete record from that organization. Para Term AB IAB SAB Ectopic Multiple Livin g Live Births 3 2 2 1 1 3 3 Date Outcome GA Total Labor Labor/2nd/3rd Weight Sex Type Anes PTL Tiffanie A1 A5 Name Clin 2006 36w 0d F CS-Un spec Living Comments:twin girls in [place] Term F Living 2012 2019 Term 39w 1d M CS-Un spec Living Last Filed Vital Signs Vital Sign Reading Time Taken Comments Blood Pressure 110/62 05/12/2025 9:23 AM EST Pulse 56 05/12/2025 9:23 AM EST Temperature 36.6 C (97.9 F) 03/16/2025 4:02 PM EDT Respiratory Rate 14 03/16/2025 4:02 PM EDT Oxygen Saturation 98% 05/12/2025 9:23 AM EST Inhaled Oxygen Concentration - - Weight 93.1 kg (205 lb 3.2 oz) 05/12/2025 9:23 A M EST Height 161.3 cm (5' 3.5 ) 05/12/2025 9:23 AM EST Body Mass Index 35.78 05/12/2025 9:23 AM EST Plan of Treatment Upcoming Encounters Date Type Department Care Team (Late st Contact Info) Description 07/29/2025 10:00 AM EST Ancillary Procedure [facility] [address] [place] [address] 10/01/2025 4:30 PM EDT Office Visit Adult Medicine [facility] [address] [place], [place] [phone] Romain Gold MD [address] [place], [place] Health Maintenance Due Date Last Done Comments Drug Screen 1983 Non-Opioid Controlled Substance Agreement 1983 Hepatitis B Vaccines (1 of 3 - 19+ 3-dose series) 2002 HPV Vaccines (1 - 3-dose SCDM series) 2010 Social Influencers of Health Screening 05/27/2022 Depression Screening 06/18/2024 COVID-19 Vaccine ( - season) 2025 03/11/2021, 02/18/2021 Influenza Vaccine (#1) 2025 , 05/27/2021, 03/10/2020, Additional history exists Breast Cancer Screening 10/24/2025 10/25/2023, 10/24 Cervical Cancer Screening: HPV 03/06/2028 03/06/2023 DTaP,Tdap,and Td Vaccines (3 - Td or Tdap) 06/23/2029 06/23/2019, 04/12/2015 Cholesterol Screening (Lipid Panel) 03/16/2030 03/16/2025, 03/11/2024, 03/11/2024 RSV Immunization Adult Patients (1 - 1-dose 75+ series) 2058 Hepatitis C Screening Completed 08/28/2016 HIV Screening Completed 02/25/2019 HIB Vaccines Aged Out No longer eligi ble based on patient's age to complete this topic Hepatitis A Vaccines Aged Out No long er eligible based on patient's age to complete this topic IPV Vaccines Aged Out No longer eligi ble based on patient's age to complete this topic MMR Vaccines Aged Out No longer eligi ble based on patient's age to complete this topic Meningococcal ACWY Vaccine Aged Out N o longer eligible based on patient's age to complete this topic Meningococcal B Vaccine Aged Out No l onger eligible based on patient's age to complete this topic Pneumococcal Vaccine: Pediatrics (0 to 5 Years) and At-Risk Patients (6 to 49 Years) Aged Out No longer eligible based on patient's age to complete this topic RSV Immunization Patients Under 20 months Aged Out No longer eligible based on patient's age to complete this topic Varicella Vaccines Aged Out No longer eligible based on patient's age to complete this topic Procedures Procedure Name Priority Date/Time Associated Diagnosis Comments CBC WITH AUTO DIFFERENTIAL Routine 03/16/2025 4:44 PM EDT Hypothyroidism, unspecified type Anxiety disorder, unspecified type Noncompaction cardiomyopathy (CMS/HCC V24, CMS/HCC V28) Screening mammogram for breast cancer BASIC METABOLIC PANEL Routine 03/16/2025 4:44 PM EDT Hypothyroidism, unspecified type Anxiety disorder, unspecified type Noncompaction cardiomyopathy (CMS/HCC V24, CMS/HCC V28) Screening mammogram for breast cancer LIPID PANEL WITH REFLEX TO DIRECT LDL Routine 03/16/2025 4:44 PM EDT Hypothyroidism, unspecified type Anxiety disorder, unspecified type Noncompaction cardiomyopathy (CMS/HCC V24, CMS/HCC V28) Screening mammogram for breast cancer CBC AND DIFFERENTIAL Routine 03/16/2025 4:44 PM EDT Hypothyroidism, unspecified type Anxiety disorder, unspecified type Noncompaction cardiomyopathy (CMS/HCC V24, CMS/HCC V28) Screening mammogram for breast cancer THYROID STIMULATING HORMONE WITH REFLEX TO FREE T4 AND FREE T3 Routine 03/16/2025 4:44 PM EDT Hypothyroidism, unspecified type Anxiety disorder, unspecified type Noncompaction cardiomyopathy (CMS/HCC V24, CMS/HCC V28) Screening mammogram for breast cancer SCREENING MAMMOGRAPHY BI 2-VIEW BREAST INC CAD Routine 10/25/2023 6:49 PM EDT Encounter for gynecological examination (general) (routine) without abnormal findings Encounter for other screening for malignant neoplasm of breast HM HPV Routine 03/06/2023 HIV SCREENING Routine 02/25/2019 HEPATITIS C SCREENING Routine 08/28/2016 from Last 3 Months or Most Recently Relevant to Health Maintenance Results * Thyroid stimulating hormone with reflex to free t4 and free t3 (03/16/2025 4:44 PM EDT) Pathologist [facility] TSH 3.40 0.40 - 4.00 mcIU/mL LAB CHEMISTRY METHOD 03/16/2025 7:35 PM EDT [facility] Blood Venous blood specimen / Unknown Venipuncture / Unknown 03/16/2025 4:44 PM EDT 03/16/2025 4:44 PM EDT us Kimberly Cheatham [employer] DES[employer] LAB BLOOD ORDERABLES Final Re sult [facility] [address] [place] [address], [place] [phone] * (ABNORMAL) Lipid panel with reflex to direct LDL (03/16/2025 4:44 PM EDT) Pathologist [facility] Cholesterol 174 0 - 200 mg/dL LAB CHEMISTRY METHOD 03/16/2025 7:04 PM EDT [facility] Triglycerides 261(H) 0 - 150 mg/dL LAB CHEMISTRY METHOD 03/16/2025 7:04 PM EDT [facility] HDL 36(L) >=40 mg/dL LAB CHEMISTRY METHOD 03/16/2025 7:04 PM EDT [facility] LDL Calculated 86 0 - 100 mg/dL LAB CHEMISTRY METHOD 03/16/2025 7:04 PM EDT [facility] Comment:Estimated LDL Calcul ated using equation: Total cholesterol - HDL cholesterol - (Triglycerides/5) VLDL Cholesterol Frank 52.2 mg/dL LAB CHEMISTRY METHOD 03/16/2025 7:04 PM EDT [facility] Non HDL Chol. (LDL+VLDL) 138 <145 mg/dL LAB CHEMISTRY METHOD 03/16/2025 7:04 PM EDT [facility] Chol/HDL Ratio 4.8(H) 0.0 - 4.4 LAB CHEMISTRY METHOD 03/16/2025 7:04 PM EDT [facility] Blood Venous blood specimen / Unknown Venipuncture / Unknown 03/16/2025 4:44 PM EDT 03/16/2025 4:44 PM EDT us Kimberly Cheatham [employer] LAB BLOOD ORDERABLES Final Re sult [facility] [address] [place] [address], [place] [phone] * (ABNORMAL) CBC auto differential (03/16/2025 4:44 PM EDT) WBC 6.8 4.8 - 10.8 K/mcL LAB HEMETOLOGY METHOD 03/16/2025 6:45 PM EDT [facility] RBC 3.90 3.80 - 4.80 M/mcL LAB HEMETOLOGY METHOD 03/16/2025 6:45 PM EDT [facility] Hemoglobin 11.4(L) 11.5 - 16.0 g/dL LAB HEMETOLOGY METHOD 03/16/2025 6:45 PM EDT [facility] Hematocrit 35.3 35.0 - 47.0 % LAB HEMETOLOGY METHOD 03/16/2025 6:45 PM EDT [facility] MCV 90.3 79.0 - 98.0 FL LAB HEMETOLOGY METHOD 03/16/2025 6:45 PM EDT [facility] MCH 29.2 27.0 - 32.0 pcg LAB HEMETOLOGY METHOD 03/16/2025 6:45 PM EDT [facility] MCHC 32.3 32.0 - 37.0 g/dL LAB HEMETOLOGY METHOD 03/16/2025 6:45 PM EDT [facility] RDW 12.9 11.0 - 15.0 % LAB HEMETOLOGY METHOD 03/16/2025 6:45 PM EDT [facility] Platelets 247 130 - 400 K/mcL LAB HEMETOLOGY METHOD 03/16/2025 6:45 PM EDT [facility] MPV 10.2 7.0 - 11.0 FL LAB HEMETOLOGY METHOD 03/16/2025 6:45 PM EDT [facility] NRBC 0.0 <1.0 % LAB HEMETOLOGY [facility] NR[facility] Absolute 0.00 <0.10 K/mcL LAB HEMETOLOGY METHOD 03/16/2025 6:45 PM [facility] Neutrophils Relative 52.0 % LAB HEMETOLOGY METHOD 03/16[facility]2025 6[facility] Lymphocytes Relative 34.4 % LAB HEMETOLOGY METHOD 03/16[facility]2025 6[facility] Monocytes Relative 9.6 % LAB HEMETOLOGY METHOD 03/16/2025 6:45 PM [facility] Eosinophils Relative 3.3 % LAB HEMETOLOGY METHOD 03/16/2025 6:[facility] Basophils Relative 0.4 % LAB HEMETOLOGY METHOD 03/16/2025 6:[facility] Immature Granulocytes Relative 0.3 % LAB HEMETOLOGY METHOD 03/16/2025 6:45 [facility] Neutrophils Absolute 3.51 1.50 - 7.00 K/mcL LAB HEMETOLOGY METHOD 03/16[facility]2025 6[facility] Lymphocytes Absolute 2.32 1.00 - 5.00 K/mcL LAB HEMETOLOGY METHOD 03/16/2025 6:45 PM EDT [facility] Monocytes Absolute 0.65 0.20 - 1.00 K/mcL LAB HEMETOLOGY METHOD 03/16/2025 6:45 PM EDT [facility] Eosinophils Absolute 0.22 0.00 - 0.50 K/mcL LAB HEMETOLOGY METHOD 03/16/2025 6:45 PM EDT [facility] Basophils Absolute 0.03 0.00 - 0.20 K/mcL LAB HEMETOLOGY METHOD 03/16/2025 6:45 PM EDT [facility] Immature Granulocytes Absolute 0.02 0.00 - 0.03 K/[facility] LAB HEMETOLOGY METHOD 03/16/2025 6:45 PM EDT [facility] Blood Venous blood specimen / Unknown Venipuncture / Unknown 03/16/2025 4:44 PM EDT 03/16/2025 4:44 PM EDT us Kimberly Cheatham [employer] DES[employer] LAB BLOOD ORDERABLES Final Re sult [facility] [address] [place] [address], * Basic metabolic panel (03/16/2025 4:44 PM EDT) Sodium 140 133 - 145 mmol/L LAB CHEMISTRY METHOD 03/16/2025 7:04 PM EDT [facility] Potassium 4.0 3.5 - 5.5 mmol/L LAB CHEMISTRY METHOD 03/16/2025 7:04 PM EDT [facility] Chloride 106 96 - 110 mmol/L LAB CHEMISTRY METHOD 03/16/2025 7:04 PM EDT [facility] CO2 30 21 - 32 mmol/L LAB CHEMISTRY METHOD 03/16/2025 7:04 PM EDT [facility] Anion Gap 4 3 - 11 LAB CHEMISTRY METHOD 03/16/2025 7:04 PM EDT [facility] Glucose 84 70 - 100 mg/dL LAB CHEMISTRY METHOD 03/16/2025 7:04 PM EDT [facility] BUN 13 5 - 25 mg/dL LAB CHEMISTRY METHOD 03/16/2025 7:04 PM EDT [facility] Creatinine 0.88 0.50 - 1.10 mg/dL LAB CHEMISTRY METHOD 03/16/2025 7:04 PM EDT [facility] eGFR 84 >=60 mL/min/1. 73m2 LAB CHEMISTRY METHOD 03/16/2025 7:04 PM EDT [facility] Comment:Calculation based on the Chronic Kidney Disease Epidemiology Collaboration (CKD-EPI) equation refit without adjustment for race. BUN/Creatinine Ratio 14.8 LAB CHEMISTRY METHOD 03/16/2025 7:04 PM EDT [facility] Calcium 8.5 8.5 - 10.5 mg/dL LAB CHEMISTRY METHOD 03/16/2025 7:04 PM EDT [facility] Blood Venous blood specimen / Unknown Venipuncture / Unknown 03/16/2025 4:44 PM EDT 03/16/2025 4:44 PM EDT us Kimberly Cheatham [employer] LAB BLOOD ORDERABLES Final Re sult [facility] [address] [place] [address], * SCREENING MAMMOGRAPHY BI 2-VIEW BREAST INC CAD (10/25/2023 6:49 PM EDT) Anatomical Region Laterality Modality Radiographic Jacqueline ging 03/06/2023 4:19 PM EDT Narrative 10/26/2023 10:50 AM EDT This is a summary report. The complete report is available in the patient's medical record. If you cannot access the medical record, please contact the sending organization for a detailed fax or copy. Study: SCREENING MAMMOGRAPHY BI 2-VIEW BREAST INC CAD Technique: Bilateral full-field digital screening mammography is obtained and read in conjunction with computer aided detection. Tomosynthesis as well as 2D C-View imaging were obtained. Comparison: None. This is a baseline study. Breast composition: There are scattered areas of fibroglandular density. Bilateral breasts: Status post bilateral reduction mammoplasty. No significant masses, suspicious calcifications or other abnormalities are seen in either breast. IMPRESSION: Impression: Bilateral breasts: Benign, no specific mammographic evidence of malignancy. Normal interval follow-up is recommended in 12 months. BI-RADS: Category 2: Benign Procedure Note Ania Benitez MD - 02/04/2024 This is a summary report. The complete report is available in thepatient's medical record. If you cannot access the medical record, pleasecontact the sending organization for a detailed fax or copy. Study: SCREENING MAMMOGRAPHY BI 2-VIEW BREAST INC CAD Technique: Bilateral full-field digital screening mammography is obtainedand read in conjunction with computer aided detection. Tomosynthesis aswell as 2D C-View imaging were obtained. Comparison: None. This is a baseline study. Breast composition: There are scattered areas of fibroglandular density. Bilateral breasts: Status post bilateral reduction mammoplasty. Nosignificant masses, suspicious calcifications or other abnormalities areseen in either breast. IMPRESSION: Impression: Bilateral breasts: Benign, no specific mammographic evidence ofmalignancy. Normal interval follow-up is recommended in 12 months. BI-RADS: Category 2: Benign Result [facility] FIORE IMG XR PROCEDURES Final Resul t * Cervical Cancer Screening: HPV (03/06/2023) [facility] Cervical Cancer Screening: HPV Negative, Abstracted Historical Provider [facility] Final Result * HIV Screening (02/25/2019) [facility] HIV Screening Abstracted [place] [facility] Provider [facility] Final Result * Hepatitis C Screening (08/28/2016) [facility] Hepatitis C Screening Abstracted Result [facility] Provider HEALTH MAINTENANCE Final Result from Last 3 Months or Most Recently Relevant to Health Maintenance Insurance [facility] Care Teams Delivery Driver/Customer Service Relationship Specialty Start Date End Date Romain Gold MD [address] [facility] [place] [phone] PCP - General Internal Medicine 12/02/14
--- OUTSIDE RECORDS SUMMARY | 2025-05-31 14:53 | XMS_ITS | Encounter Summary ---
Author Organization [employer] Address [address] [place] [address] Care Team Providers Care Tax Services Intern Name Role Phone Unavailable Primary Care Provider Unavailabl e Reason for Visit * Reason Onset Date Comments emergency dental MMIS active portal inactive 05/2025 Encounter Details Date Type Department Care Team ([facility] st Contact Info) Description 05/29/2025 Telephone [facility] [address] [place] [address] Tru Talbert DDS [address] [place] [address] emergency dental MMIS active portal inactive Social History Tobacco Use Types Packs/Day Years Used Date Smoking Tobacco: Never Smokeless Tobacco: Current Comments Unknown Sex and Gender Information Value Date Recorded Sex Assigned at Female 04/17/2022 10:28 AM EDT Legal Sex Female 10:28 AM EDT Gender Identity Female 04/17/2022 10:28 AM EDT Sexual Orientation Straight 04/17/2022 10 :28 AM EDT documented as of this encounter Miscellaneous Notes * Telephone Encounter - Aster Camargo - 05/29/2025 11:57 AM EST MMIS active Portal inactive Posted both MMIS and Portal DR documented in this encounter Plan of Treatment Not on file documented as of this encounter Visit Diagnoses Not on filedocumented in this encounter
[2025-05-31] MEDS: iohexoL 350 MG/ML 100 ML INFUS..BTL IV (17:18)
--- NOTE | 2025-05-31 18:37 | PC.NURSE ---
Patient reporting improved pain after receiving IV pain medication
[2025-05-31] MEDS: metroNIDAZOLE/NS 500 MG/100 ML PIGGYBACK 100 MG IV (20:54)
--- NOTE | 2025-05-31 21:17 | PC.NURSE ---
Nurse to nurse called and given to [place] ED triage nurse at this time, EMS arrival estimated to be in the next 25-30 minutes, pt aware of plan.
== END 2025-05-31 21:58 | disposition short-term general hospital (02) ==
PROVIDERS: Physician Assistant Medical; Emergency Provider Emergency Medicine; PCP Internal Medicine
DX: K04.7 Periapical abscess without sinus (principal); K08.89 Other specified disorders of teeth and supporting structures; R22.0 Localized swelling, mass and lump, head
CPT/HCPCS: 36415; 70491; 80053; 83605; 83735; 84702; 85025; 85652; 86140; 87040; 96365; 96375; 96376; 99285; J0696; J1100; J1171; J1836; J1885; Q9967

== ENCOUNTER → 2025-05-31 15:29 | Outpatient (BNV) | payer OTHER, SELFPAY | PROVIDERS: Emergency Provider Emergency Medicine; PCP Internal Medicine; Visit Provider Radiology Diagnostic Radiology | DX: K04.7 Periapical abscess without sinus (principal) | CPT/HCPCS: 70491 ==